=== PATIENT | female | born 1985 | race Caucasian/White ===

== ENCOUNTER 2019-10-29 19:14 | Emergency (ER) | payer OTHER, MEDICAID, SELFPAY ==
[2019-09-12 19:44] VITALS: BMI 21.8
[2019-10-29 19:15] VITALS: BP 98/75; PULSE 62; RESP 16; TEMP 36.4; O2SAT 100; BMI 22.4
--- NOTE | 2019-10-29 19:36 | EKG12_ITS ---
Test Reason : SYNCOPE Blood Pressure : / mmHG Vent. Rate : 064 BPM Atrial Rate : 064 BPM P-R Int : 134 ms QRS Dur : 094 ms QT Int : 408 ms P-R-T Axes : 021 037 025 degrees QTc Int : 420 ms Normal sinus rhythm with sinus arrhythmia RSR' or QR pattern in V1 suggests right ventricular conduction delay Borderline ECG Confirmed by ANGELA REY, AKBAR ([id number]), market editor LIZZ CUEVA ([id number]) on 10/30/2019 2:56:52 PM Referred By: EMELINA COTTRELL Confirmed By:AKBAR MILLER MD
[2019-10-29] MEDS: 0.9% Normal Saline 1,000 ML 1000 ML IV (20:10)
[2019-10-29 20:11] LABS: Absolute Lymphocyte Count 2.04 X10^3/uL (0.83-4.51); Absolute Neutrophil Count 3.3 X10^3/uL (2.0-7.7); Basophil# 0.04 X10^3/uL; Basophil% 0.7 % (0-1); Eosinophil# 0.11 X10^3/uL; Eosinophils% 1.9 % (0-5); Hematocrit 41.2 % (37-47); Hemoglobin 14.1 g/dL (12.0-15.0); Lymphocyte # 2.04 X10^3/ul (4.0); Lymphocyte % 34.5 % (19-41); Mean Corp Hgb Conc 34.2 g/dL (32-36); Mean Corpuscular Hgb 31.5 pg (27.0-32.0); Mean Corpuscular Volume 92.2 fL (81-99); Mean Platelet Vol. 11.6 fl (6.2-12.0); Monocyte# 0.39 X10^3/uL; Monocyte% 6.6 % (0-10); NRBC Flagged by Analyzer 0 % (0-5); Neutrophil # 3.31 X10^3/uL (2.7-7.7); Platelet Count 215 K/mm3 (150-450); RBC Distribution Width CV 11.9 % (11.6-14.6); RBC Distribution Width SD 40.3 fl (35.1-43.9); Red Blood Count 4.47 M/mm3 (4.2-5.4); White Blood Count 5.9 K/mm3 (4.4-11.0)
[2019-10-29 20:15] VITALS: BP 95/71; BP 97/60; BP 97/75; PULSE 55; PULSE 60; PULSE 75
[2019-10-29 20:24] LABS: Bacteria 0 SEEN /hpf (None Seen); Mucous, Urine 0 SEEN /hpf (<or=2+); Red Blood Cells-Urine 0 SEEN /hpf (0-5); White Blood Cells 0 SEEN /hpf (0-5)
[2019-10-29 20:27] LABS: Anion Gap 6 (5-15); BUN 11 mg/dL (7-18); BUN/Creat Ratio 17.7 RATIO (10-20); Calcium,Total 9.1 mg/dL (8.5-10.1); Chloride 109 mmol/L (98-107); Creatinine, Serum 0.62 mg/dL (0.55-1.02); EST Glomerular Filtration Rate 118 mL/min (>60); Est Glom Filt Rate - Afr Amer 142 mL/min (>60); Estimated Creatinine Clearance 116.13 ml/min; Glucose 83 mg/dL (74-106); Potassium 3.8 mmol/L (3.5-5.1); Sodium Level 142 mmol/L (136-145)
[2019-10-29 20:37] LABS: Color, Urine Yellow (Yellow); Glucose, Dipstick Normal (Normal); Ketone-Dipstick Negative (Negative); Leukocyte Esterase-Dipstick Negative /ul (Negative); Nitrite-Dipstick Negative (Negative); Occult Blood-Urine Negative /ul (Negative); Protein-Dipstick Negative (Negative); Specific Gravity, Urine 1.005 (1.002-1.030); Urine Bilirubin Dipstick Negative (Negative); Urine Clarity Clear (Clear); Urine Urobilinogen Normal (Normal)
[2019-10-29 20:42] LABS: Squamous Epithelial Cells - UA 0-5 SEEN /hpf (5-10)
--- NOTE | 2019-10-29 20:45 | ED.VISSUMM ---
- ER Visit Summary Date of Service: 10/29/19 Chief Complaint: [Syncope/mental status change] History of Present Illness: The patient is a 34 F [presents to the emergency department with what sounds like a syncopal episode that occurred about an hour ago. Patient was in a support group meeting sitting when she started feeling very hot and felt lightheaded and dizzy. Patient felt like she was frozen in her body and could not speak. Friends helped lay her down on the ground and after about 30 seconds she started to feel better and started to speak. She just feels tired and drained. 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 She has history of bipolar disorder, anxiety, colitis, and remote history of drug abuse. Patient is recovering and has not used in over 3 years but used to use opiates as well as cocaine and benzodiazepines as well as methamphetamines. Patient has had prior hysterectomy.] 1 of the bystanders noted that patient's pupils were different sizes and became concerned. There is no seizure-like activity noted. Physical Examination: [HEENT-PERRLA, EOMI. Cranial nerves II through XII grossly intact. TMs clear. Mucous membranes moist. No adenopathy. Cardiovascular-regular rate and rhythm without murmur or ectopy Lungs-clear to auscultation, chest wall stable without crepitus or subcu emphysema Abdomen-normoactive bowel sounds, soft, nontender, no rebound or rigidity, no peritoneal signs. Neuro bsby-ksmund-jpdg and heel newton testing within normal limits, negative Romberg, negative pronator, fundi benign Extremities-intact ?4, normal range of motion, normal pulses, atraumatic] Test Results: [EKG obtained on arrival shows sinus rhythm with a ventricular rate of 64 bpm. CBC with differential was normal. Chemistries unremarkable. Orthostatic vital signs were negative. Urinalysis was normal.] Emergency Department Course and Treatment: [She was given a liter normal same fluid bolus.] Treatment Plan: [Advised to push fluids. Patient to follow-up with her primary care physician within next 3 to 5 days.] Disposition: [Discharged home in stable condition.] Impression: [Syncope-suspect vasovagal episode] This note was generated with [employer] software. It may contain incorrect words, spelling, and punctuation that were not noted in review of the chart prior to signing ED Disposition - Plan for ED Patient: Referrals: Chely Romo, PHYSICIAN SUPPORT COORDINATOR-C [Primary Care Provider] -
--- NOTE | 2019-10-29 20:49 | ED.DEP ---
ED Disposition - Plan for ED Patient: Instructions: SYNCOPE, Vasovagal Referrals: Chely Romo, LAMBERTO-C [Primary Care Provider] - 3-5 Days
[2019-10-29 20:50] VITALS: BP 95/71; PULSE 62; RESP 12; O2SAT 98
== END 2019-10-29 21:05 | disposition home or self-care (01) ==
LOC: ED 20:01
PROVIDERS: Emergency Provider Emergency Medicine; Family Provider Nurse Practitioner; PCP Nurse Practitioner
DX: R55 Syncope and collapse (principal); R30.0 Dysuria; R35.0 Frequency of micturition; F31.9 Bipolar disorder, unspecified; F41.9 Anxiety disorder, unspecified; Z86.19 Personal history of other infectious and parasitic diseases; Z87.19 Personal history of other diseases of the digestive system; Z87.898 Personal history of other specified conditions; Z72.0 Tobacco use
CPT/HCPCS: 80048; 81001; 85025; 93005; 96360; 99285; J7030; A4216

== ENCOUNTER 2020-02-28 20:50 | Emergency (ER) | payer OTHER, MEDICAID, SELFPAY ==
[2020-02-27 16:55] VITALS: BMI 21.8
[2020-02-28 20:51] VITALS: BP 110/68; PULSE 66; RESP 16; TEMP 36.7; O2SAT 98; BMI 21.6
[2020-02-28] MEDS: 0.9% Normal Saline 1,000 ML 1000 ML IV (21:47)
[2020-02-28 21:53] LABS: Absolute Lymphocyte Count 1.97 X10^3/uL (0.83-4.51); Absolute Neutrophil Count 2.5 X10^3/uL (2.0-7.7); Basophil# 0.04 X10^3/uL; Basophil% 0.8 % (0-1); Eosinophil# 0.11 X10^3/uL; Eosinophils% 2.2 % (0-5); Hematocrit 39.8 % (37-47); Hemoglobin 13.8 g/dL (12.0-15.0); Lymphocyte # 1.97 X10^3/ul (4.0); Lymphocyte % 40.3 % (19-41); Mean Corp Hgb Conc 34.7 g/dL (32-36); Mean Corpuscular Hgb 31.7 pg (27.0-32.0); Mean Corpuscular Volume 91.3 fL (81-99); Mean Platelet Vol. 10.8 fl (6.2-12.0); Monocyte# 0.27 X10^3/uL; Monocyte% 5.5 % (0-10); NRBC Flagged by Analyzer 0 % (0-5); Neutrophil # 2.49 X10^3/uL (2.7-7.7); Platelet Count 176 K/mm3 (150-450); RBC Distribution Width CV 11.6 % (11.6-14.6); RBC Distribution Width SD 39.2 fl (35.1-43.9); Red Blood Count 4.36 M/mm3 (4.2-5.4); White Blood Count 4.9 K/mm3 (4.4-11.0)
[2020-02-28 22:09] LABS: ALB/GLOB Ratio 1.3 RATIO (0.9-2.4); AST(SGOT) 16 U/L (15-37); Alanine Aminotransfer ALT/SGPT 23 U/L (13-56); Albumin, Serum 3.9 g/dL (3.2-5.0); Alkaline Phosphatase 58 U/L (45-117); Anion Gap 5 (5-15); BUN 10 mg/dL (7-18); BUN/Creat Ratio 15.6 RATIO (10-20); Chloride 107 mmol/L (98-107); Creatinine, Serum 0.64 mg/dL (0.55-1.02); EST Glomerular Filtration Rate 113 mL/min (>60); Est Glom Filt Rate - Afr Amer 137 mL/min (>60); Glucose 83 mg/dL (74-106); Lipase 161 U/L (73-393); Potassium 3.4 mmol/L (3.5-5.1); Protein, Total 6.9 g/dL (6.4-8.2); Sodium Level 142 mmol/L (136-145)
--- NOTE | 2020-02-28 22:21 | ED.DCSUM_ITS ---
- ER Visit Summary Date of Service: 02/28/20 Chief Complaint: Abdominal pain, nausea, vomiting, and diarrhea History of Present Illness: The patient is a 34 F who presents with abdominal pain, nausea, vomiting, and diarrhea for the past week. Patient states her pain is diffuse across her abdomen. Patient states pain is aching and burning. Patient states the pain is stabbing at times. Patient states the pain is been constant. Patient admits to some nausea and vomiting. Patient denies any hematemesis or coffee-ground emesis. Patient states her primary care physician ordered her Phenergan which has been helping. Patient admits to diarrhea but denies any melena or hematochezia. Patient denies any dysuria or hematuria. Physical Examination: Vital signs are stable. Patient is afebrile. Patient is in no acute distress. Oral mucosa is pink and moist. Neck is supple. Trachea is midline. There is no JVD noted. Heart was regular rate and rhythm. Lungs are clear and equal bilaterally. Abdomen is soft. Bowel sounds are normal. There is mild diffuse tenderness. There is no rebound or guarding noted. Skin is warm dry. Cranial nerves II through XII are intact. There are no focal motor or sensory deficits noted. Extremities are intact. There is no calf tend erness or edema. Test Results: CBC, comprehensive metabolic profile, and urinalysis were obtained were all within normal limits. Serum alcohol level was normal. Urine tox scree n is pending. Emergency Department Course and Treatment: Patient was given IV fluids here. Patient started having some nausea and vomiting. Patient was given a dose of Zofran. sheep farm worker was in to talk with the patient. As she was talking to her, the patient started having increasing thoughts of suicide if she were to be discharged. Patient will be placed in a psychiatric facility. Disposition: Transfer to psychiatric facility Impression: 1. Depression with suicidal ideation 2. Abdominal pain 3. Nausea and vomiting This note was generated with [employer] dictation software. It may contain incorrect words, spelling, and punctuation that were not noted in review of the chart prior to signing ED Disposition - Plan for ED Patient: Disposition: Psychiatric Hospital or Unit Diagnosis: Depression with suicidal ideation, Abdominal pain, Nausea & vomiting Referrals: Chely Romo NP-C [Primary Care Provider] -
--- NOTE | 2020-02-28 22:35 | CM.ED ---
Social Work Consult: Mental Health Informant: Dr. Strauss Chief Complaint: Patient stating to be overwhelmed with current raising thoughts and patient struggling to manage mental health on own at this time, even with community support (counseling). Patient stating to be experiencing a lot of highs and lows. Marital/Social History: Single. Currently has a boyfriend. Living Situation: Lives with roommate. Support/Resources: Sober support group, [facility], patient follows with counseling and psychiatrist. Patient counselor is Sharon. Patient has only had one appointment with the psychiatrist at this time. Patient identifying positive support from family and friends. History: None Education/Employment History: Completed High school. Currently in [employer] for a degree in sociology. Patient denies any concerns with comprehension on a regular basis but stating that lately patient has been unable to concentrate or focus. Mental Health Treatment/History: Bi-polar, Depression, PTSD, Anxiety. Patient stating that counseling is helpful and that patient recently was started on Zoloft 5mg and had a three day manic episode and has not stopped taking Zoloft due to psychiatrist recommendation and is not taking any medication at this time. Patient stating to have a history of inpatient psychiatric placement and last placement was in 2015 in [place]. Triggers/Stressors: Patient stating that this time of year is a stressful time as there was trauma around this time of year in patient past. Patient stating to also be stressed with recent changes in life style due to stay at home orders (current COVID-19 pandemic). Coping Skills: Journaling, Meditation, Yoga, Eating right, exercise and support group. Patient stating that the coping skills are just not doing it. Abuse Issues: Patient reporting a history of trauma. Did not explore whole history at this time. Substance Abuse Hx: Patient stating to have a substance abuse history of substance of choice being Meth. Patient stating last use was 2015. Patient stating to have used other substance as well but to not currently abuse substances outside of smoking tobacco. Risk to Self/Others: Patient initially denies any suicidal thoughts. Later in conversation patient stating I might be contemplating suicide. Patient stating to be concerned that patient will use drugs again and that this would lead to patient . Patient stating I would not come back from that. Patient denies any homicidal thoughts/plans. Patient stating I want it to stop. Patient identifying raising thoughts and stating It is terrifying. Patient stating to feel patient slipping to the dark side. Patient with history of suicide attempts with last attempt in 2015. Mental Status Exam: A&Ox3 Appearance/General Behavior: Clean/appropriate. Calm. Mood/Affect: Depressed. Flat affect. Communication Pattern: Responds to questions. Thought Process: Appropriate. Denies hallucinations or delusions. General Intellectual Functioning: Average Judgement: Good. Assessment: Met with patient in room. Introduced self as well as social work program coordinator role. Patient stating to have spoken to counselor and crisis today and was recommended for patient to come to the ED for mental health evaluation and admission to inpatient psychiatric facility for stabilization. Patient stating I don't know what to do. Patient stating to have been feeling down and depressed for the past few months but that recently patient coping skills have not been working. Patient stating to feel myself disappear. Patient stating to feel as if patient is disassociating and possibly living in the past. Patient stating to not be able to concentrate or remember things. Patient stating I wish I would not wake up. Patient stating I want to live, but don't know how. Patient stating to have had a Hysterectomy in April 2019 and to have thought that it was my hormones. Identified with patient that medical changes and impact hormones and mood. Patient stating I am just not getting better. Patient stating I feel defeated. Patient stating I feel like a failure. Reminding patient of patient strength of coming into the hospital and reaching out for help. Patient stating to feel as if patient should be able to figure out things on patient own, reminded patient that using others for support is not a negative thing and does not reflect poorly on how patient is working through life. Patient over all concerned about what patient might do to stop the raising thoughts and is considering using drugs again to manage patient mental health and current emotions. Patient stating that if patient would start using drugs again that patient would most likely . Collaborating with Dr. Strauss. Recommending inpatient psychiatric placement for stabilization. PLAN: Inpatient psychiatric placement pending medical clearance. Kota REINOSO, FATOUMATA
[2020-02-28 22:43] LABS: Mucous, Urine 0 SEEN /hpf (<or=2+); Red Blood Cells-Urine 0 SEEN /hpf (0-5); White Blood Cells 0 SEEN /hpf (0-5)
[2020-02-28 22:49] LABS: Color, Urine Straw (Yellow); Glucose, Dipstick Normal (Normal); Ketone-Dipstick Negative (Negative); Leukocyte Esterase-Dipstick Negative /ul (Negative); Nitrite-Dipstick Negative (Negative); Occult Blood-Urine Negative /ul (Negative); Protein-Dipstick Negative (Negative); Urine Bilirubin Dipstick Negative (Negative); Urine Clarity Clear (Clear); Urine Urobilinogen Normal (Normal)
[2020-02-28 22:55] LABS: Bacteria RARE /hpf (None Seen); Squamous Epithelial Cells - UA 0-5 SEEN /hpf (5-10)
[2020-02-28 23:07] VITALS: BP 104/79; PULSE 60; RESP 16; TEMP 36.9; O2SAT 100
--- NOTE | 2020-02-28 23:15 | CM.ED ---
Social Work Telephone call to [place], [facility]. Clinical information faxed. Pending approval. Kota REINOSO, FATOUMATA
[2020-02-28 23:24] LABS: Alcohol, Blood (Medical)-Serum < 3.0 mg/dL
[2020-02-28] MEDS: Ondansetron 4 MG/2 ML Vial IV (23:41)
[2020-02-29 00:35] VITALS: BP 104/79; PULSE 60; RESP 16; TEMP 36.9; O2SAT 100
[2020-02-29] MEDS: Dicyclomine 10 MG Capsule 20 MG PO (00:48)
[2020-02-29] MEDS: Mag Hydrox/Al Hydrox/Simeth 30 ML UDC PO (00:48)
[2020-02-29] MEDS: proMETHazine 25 MG Tablet PO (00:59)
--- NOTE | 2020-02-29 09:18 | ED.RN ---
SEE DOWN TIME DOCUMENTATION FROM [id number]
== END 2020-02-29 01:55 ==
PROVIDERS: Emergency Provider Emergency Medicine; PCP Nurse Practitioner
DX: F32.9 Major depressive disorder, single episode, unspecified (principal); R45.851 Suicidal ideations; R10.9 Unspecified abdominal pain; R11.2 Nausea with vomiting, unspecified; R19.7 Diarrhea, unspecified; M54.2 Cervicalgia; R51 Headache; M54.9 Dorsalgia, unspecified; R50.9 Fever, unspecified; Z79.899 Other long term (current) drug therapy; F17.200 Nicotine dependence, unspecified, uncomplicated
CPT/HCPCS: 36415; 80053; 80320; 81001; 83690; 85025; 96361; 96374; 99283; J7030; A4216; G0480; J2405

== ENCOUNTER → 2020-08-21 | Outpatient (CLI) | payer OTHER, MEDICAID, SELFPAY ==
[2020-08-21 17:55] VITALS: BMI 23.3
[2020-08-21 21:20] LABS: Absolute Lymphocyte Count 2.25 X10^3/uL (0.83-4.51); Absolute Neutrophil Count 2.7 X10^3/uL (2.0-7.7); Basophil# 0.05 X10^3/uL; Basophil% 0.9 % (0-1); Eosinophil# 0.16 X10^3/uL; Eosinophils% 2.9 % (0-5); Hematocrit 38.7 % (37-47); Hemoglobin 13.4 g/dL (12.0-15.0); Lymphocyte # 2.25 X10^3/ul (4.0); Lymphocyte % 41.1 % (19-41); Mean Corp Hgb Conc 34.6 g/dL (32-36); Mean Corpuscular Hgb 31.7 pg (27.0-32.0); Mean Corpuscular Volume 91.5 fL (81-99); Mean Platelet Vol. 12.2 fl (6.2-12.0); Monocyte# 0.34 X10^3/uL; Monocyte% 6.2 % (0-10); NRBC Flagged by Analyzer 0 % (0-5); Neutrophil # 2.66 X10^3/uL (2.7-7.7); Neutrophil % 48.7 % (47-70); Platelet Count 205 K/mm3 (150-450); RBC Distribution Width CV 11.8 % (11.6-14.6); RBC Distribution Width SD 39.5 fl (35.1-43.9); Red Blood Count 4.23 M/mm3 (4.2-5.4); White Blood Count 5.5 K/mm3 (4.4-11.0)
[2020-08-21 21:45] LABS: ALB/GLOB Ratio 1.2 RATIO (0.9-2.4); AST(SGOT) 16 U/L (15-37); Alanine Aminotransfer ALT/SGPT 34 U/L (13-56); Albumin, Serum 3.9 g/dL (3.2-5.0); Alkaline Phosphatase 69 U/L (45-117); Anion Gap 4 (5-15); BUN 13 mg/dL (7-18); BUN/Creat Ratio 18.6 RATIO (10-20); Calcium,Total 9.6 mg/dL (8.5-10.1); Chloride 108 mmol/L (98-107); EST Glomerular Filtration Rate 102 mL/min (>60); Est Glom Filt Rate - Afr Amer 123 mL/min (>60); Globulin 3.2 g/dL (2.2-4.2); Glucose 101 mg/dL (74-106); Potassium 3.4 mmol/L (3.5-5.1); Protein, Total 7.1 g/dL (6.4-8.2); Sodium Level 140 mmol/L (136-145); Thyroid Stim Hormone (TSH) 0.99 uIU/mL (0.358-3.74)
[2020-08-23 05:07] LABS: Immunoglobulin G 823 mg/dL (586-1602)
[2020-08-23 09:47] LABS: Immunoglobulin A 169 mg/dL (87-352)
[2020-08-23 12:34] LABS: ANTINUCLEAR ANTIBODIES DIRECT Negative (Negative)
[2020-08-23 16:08] LABS: Endomysial Antibody IgA Negative (Negative)
[2020-08-23 17:13] LABS: Deamidated Gliadin IgA 3 units (0-19); Deamidated Gliadin IgG 2 units (0-19); Immunoglobulin A 168 mg/dL (87-352); t-Transglutaminase IgA <2 U/mL (0-3)
== END | disposition home or self-care (01) ==
PROVIDERS: Visit Provider Nurse Practitioner
DX: M25.50 Pain in unspecified joint (principal); K52.9 Noninfective gastroenteritis and colitis, unspecified; D69.6 Thrombocytopenia, unspecified; R53.83 Other fatigue; D64.9 Anemia, unspecified; M25.40 Effusion, unspecified joint
CPT/HCPCS: 80053; 82784; 83516; 84443; 85025; 86038; 86225; 86235; 86255; 86431

== ENCOUNTER → 2020-11-07 | Outpatient (CLI) | payer OTHER, MEDICAID, SELFPAY | END | disposition home or self-care (01) | LOC: LABSPEC 15:15 | PROVIDERS: PCP Nurse Practitioner; Visit Provider Otolaryngology | DX: J02.9 Acute pharyngitis, unspecified (principal) | CPT/HCPCS: 87070 ==

== ENCOUNTER 2020-12-26 11:23 | Emergency (ER) | payer MEDICAID, SELFPAY ==
[2020-12-26 11:25] VITALS: BP 138/76; PULSE 98; RESP 18; TEMP 36.5; O2SAT 100; BMI 22.4
--- NOTE | 2020-12-26 11:45 | EKG12_ITS ---
Test Reason : Blood Pressure : / mmHG Vent. Rate : 073 BPM Atrial Rate : 073 BPM P-R Int : 136 ms QRS Dur : 094 ms QT Int : 394 ms P-R-T Axes : 024 054 031 degrees QTc Int : 434 ms Normal sinus rhythm with sinus arrhythmia Normal ECG Confirmed by ROMI REY, RIVERA ([id number]), art editor CANDELARIA SUMMERS ([id number]) on 12/30/2020 10:45:05 AM Referred By: FATEMEH Confirmed By:ZOHAIB LLANOS MD
--- NOTE | 2020-12-26 11:45 | ED.VIS.GEN ---
History of Present Illness Chief Complaint: Palpitations Informant: Patient Narrative: 35-year-old female presenting with palpitations and lightheadedness which started after she had a meeting today. Patient states that she had a little bit of chest pressure. She states that she has had bouts of low blood sugar and thought maybe it was this what drinking something did not change anything. Patient also states that she has gotten lightheaded from standing up before and it does not feel the same. She also cannot describe her dizziness as vertiginous in nature. No history of vertigo. Patient has no cardiac history or medical problems that she knows of. No history of DVT/PE. Patient does states that she had Covid?19 when February and recovered slowly. She states she is modified her lifestyle and eats healthy now. Past Medical History - Allergies and Home Meds Allergies/Adverse Reactions: Allergies aspirin Allergy (Severe, Verified 12/26/20 11:24) anaphylaxis Penicillins Allergy (Severe, Verified 12/26/20 11:24) anaphylactic vancomycin Allergy (Severe, Verified 12/26/20 11:24) Anaphylaxis lurasidone [From Latuda] Adverse Reaction (Severe, Verified 12/26/20 11:24) made her feel funny Primary Care Physician: Chely Romo [facility], [facility] [Nurse Practitioner] - Prior records reviewed: Yes Past Medical History: - - Patient reports no significant medical history. Surgical History: noncontributory Lives: Alone Smoking Status: Current every day smoker Alcohol: None Drugs: None Review of Systems General: Denies: Chills, Fever, Malaise Eyes: Denies: Visual changes - bilaterally, Diplopia ENT: Denies: Rhinorrhea, Sore throat Cardiovascular: Reports: Chest pain, Palpitations, Heart racing Respiratory: Denies: Dyspnea, Cough, Dyspnea on exertion Gastrointestinal: Denies: Abdominal pain, Nausea, Vomiting, Diarrhea, Melena, Hematochezia Genitourinary: Denies: Dysuria, Hematuria Musculoskeletal: Denies: Myalgias, Arthralgias Skin: Denies: Rash, Abscess Neurological: Denies: Headache, Weakness, Parasthesia, Numbness Psych: Reports: Anxiety. Denies: Suicidal thoughts, Suicidal ideations Physical Exam Vital Signs/Narrative: Vital Signs Temp Pulse Resp BP Pulse Ox 12/26/20 11:25 97.7 F L 98 18 138/76 H 100 Inital Vital Signs reviewed: Yes General: Well nourished, Well developed, No Acute Distress Head: Normocephalic, Atraumatic Eyes: Perrl, EOMI ENT: Moist mucous membranes, No rhinorrhea Cardiovascular: Regular rate, Regular rhythm Respiratory: No distress, CTA bilaterally Extremities: Nontender, No edema Skin: Normal color, No rash. Negative for: Cyanosis, Diaphoresis Neurological: Alert, Oriented x3, Cranial nerves II-XII grossly intact Psychological: Normal affect, Normal Mood Diagnostic/Tx/Re-eval Clinical Impression(s) from Imaging Studies Chest X-Ray 12/26/20 12:23 IMPRESSION: Normal x-ray examination of the chest. Electronically Signed: Quinton Blanco MD at 12:47 EST , Service support , Laboratory Data 12/26/20 12/26/20 12/26/20 12:06 12:06 12:06 WBC 3.5 L RBC 4.59 Hgb 14.5 Hct 41.9 MCV 91.3 MCH 31.6 MCHC 34.6 RDW Std Deviation 38.7 RDW Coeff of Ivon 11.6 Plt Count 179 MPV 11.9 Immature Gran % (Auto) 0.300 Neut % (Auto) 55.7 Lymph % (Auto) 33.3 Weston % (Auto) 7.3 Eos % (Auto) 2.3 Baso % (Auto) 1.1 H Absolute Neuts (auto) 2.0 Absolute Lymphs (auto) 1.18 Nucleated RBC % 0 D-Dimer Quant (PE/DVT) 0.30 Sodium 140 Potassium 3.6 Chloride 107 Carbon Dioxide 28.0 Anion Gap 5 BUN 9 Creatinine 0.76 Estim Creat Clear Calc 93.85 Est GFR (MDRD) Af Amer 113 Est GFR (MDRD) Non-Af 93 BUN/Creatinine Ratio 11.9 Glucose 89 Calcium 8.6 Troponin I < 0.015 - Rhythm Strip Rhythm Strip: Sinus Rhythm Rate: 73 - EKG Initial EKG Interpretation: Sinus Rhythm, No Acute Injury Pattern, Sinus Arrythmia - Medical Decision Making 35-year-old female presenting with dizziness. She states that suddenly onset today. On exam I am not able able to reproduce this dizziness. She cannot determine if it is vertiginous or lightheadedness. I did attempt to give her medications to see if it would help with her dizziness however she declined she was given IV fluids. Her lab work including CBC, BMP, troponin, D-dimer are all normal. Chest x-ray as interpreted by myself is negative for acute cardiopulmonary process and radiology does agree. EKG ischemic change as interpreted by myself. I believe the patient is stable to be discharged home at this time. She is given return precautions. Impression: 1. Dizziness 2. Palpitations ED Disposition - Plan for ED Patient: Disposition: Home or Assisted Living Diagnosis: Dizziness Referrals: Chely Romo NP, [facility] [Nurse Practitioner] -
[2020-12-26 12:09] VITALS: O2SAT 98
[2020-12-26] MEDS: 0.9% Normal Saline 1,000 ML 999 ML IV (12:11)
[2020-12-26 12:18] LABS: Absolute Lymphocyte Count 1.18 X10^3/uL (0.83-4.51); Basophil# 0.04 X10^3/uL; Basophil% 1.1 % (0-1); Eosinophil# 0.08 X10^3/uL; Eosinophils% 2.3 % (0-5); Hematocrit 41.9 % (37-47); Hemoglobin 14.5 g/dL (12.0-15.0); Lymphocyte # 1.18 X10^3/ul (4.0); Lymphocyte % 33.3 % (19-41); Mean Corp Hgb Conc 34.6 g/dL (32-36); Mean Corpuscular Hgb 31.6 pg (27.0-32.0); Mean Corpuscular Volume 91.3 fL (81-99); Mean Platelet Vol. 11.9 fl (6.2-12.0); Monocyte# 0.26 X10^3/uL; Monocyte% 7.3 % (0-10); NRBC Flagged by Analyzer 0 % (0-5); Neutrophil # 1.97 X10^3/uL (2.7-7.7); Neutrophil % 55.7 % (47-70); Platelet Count 179 K/mm3 (150-450); RBC Distribution Width CV 11.6 % (11.6-14.6); RBC Distribution Width SD 38.7 fl (35.1-43.9); Red Blood Count 4.59 M/mm3 (4.2-5.4); White Blood Count 3.5 K/mm3 (4.4-11.0)
--- NOTE | 2020-12-26 12:23 | RAD_ITS ---
STUDY: X-RAY CHEST REASON FOR EXAM: Female, 35 years old. Heart palpitations., lightheaded TECHNIQUE: Single AP portable view of the chest. COMPARISON: Comparison is made with prior study 07/13/2011. FINDINGS: EKG electrodes are seen. The lungs are clear and expanded. There is no demonstrated pleural abnormality. Normal size heart. Normal mediastinum and fletcher. Normal visualized pulmonary arteries. Normal visualized aortic arch and descending thoracic aorta. Normal visualized thoracic spine. Normal visualized ribs, clavicles, and shoulders. There is no demonstrated abnormality of the visualized soft tissue structures of the upper abdomen. RAD/Chest 1 View (Portable) IMPRESSION: Normal x-ray examination of the chest. Electronically Signed: Quinton Blanco MD at 12:47 EST , Service support ,
[2020-12-26 12:31] LABS: Anion Gap 5 (5-15); BUN 9 mg/dL (7-18); BUN/Creat Ratio 11.9 RATIO (10-20); Calcium,Total 8.6 mg/dL (8.5-10.1); Chloride 107 mmol/L (98-107); Creatinine, Serum 0.76 mg/dL (0.55-1.02); EST Glomerular Filtration Rate 93 mL/min (>60); Est Glom Filt Rate - Afr Amer 113 mL/min (>60); Estimated Creatinine Clearance 93.85 ml/min; Glucose 89 mg/dL (74-106); Potassium 3.6 mmol/L (3.5-5.1); Sodium Level 140 mmol/L (136-145)
[2020-12-26 13:36] VITALS: BP 101/62; PULSE 74; RESP 16; O2SAT 99
== END 2020-12-26 13:41 | disposition home or self-care (01) ==
PROVIDERS: Emergency Provider Student in an Organized Health Care Education/Training Program
DX: R42 Dizziness and giddiness (principal); R00.2 Palpitations; R07.89 Other chest pain; F17.200 Nicotine dependence, unspecified, uncomplicated
CPT/HCPCS: 71045; 80048; 84484; 85025; 85379; 93005; 96360; 99284; J7030; A4216

== ENCOUNTER → 2021-02-19 14:00 | Outpatient (CLI) | payer MEDICAID, SELFPAY ==
[2021-02-18 17:27] VITALS: BMI 22.6
== END ==
PROVIDERS: PCP Nurse Practitioner; Referring Provider Nurse Practitioner; Visit Provider Nurse Practitioner
DX: R53.83 Other fatigue (principal); I95.9 Hypotension, unspecified
CPT/HCPCS: 87635; C9803; U0002

== ENCOUNTER → 2021-03-21 11:04 | Outpatient (CLI) | payer MEDICAID, SELFPAY ==
[2021-03-18 11:44] VITALS: BMI 22.8
[2021-03-27 04:07] LABS: Banana 0.29 kU/L (Class 0/I); Carrot <0.10 kU/L (Class 0); Chicken <0.10 kU/L (Class 0); Crab <0.10 kU/L (Class 0); Egg, Yolk <0.10 kU/L (Class 0); Garlic 0.14 kU/L (Class 0/I); Oat 0.22 kU/L (Class 0/I); Onion 0.25 kU/L (Class 0/I); Pea <0.10 kU/L (Class 0); Pecan <0.10 kU/L (Class 0); Rice 0.14 kU/L (Class 0/I); Salmon <0.10 kU/L (Class 0); Shrimp <0.10 kU/L (Class 0); Strawberry 0.12 kU/L (Class 0/I); Tomato 0.31 kU/L (Class 0/I); Tuna <0.10 kU/L (Class 0); Walnut, (Food) 0.17 kU/L (Class 0/I); Yeast <0.10 kU/L (Class 0)
[2021-03-27 07:49] LABS: Cashew <0.10 kU/L (Class 0); Turkey <0.10 kU/L (Class 0)
== END ==
PROVIDERS: PCP Nurse Practitioner; Visit Provider Otolaryngology
DX: T78.40XA Allergy, unspecified, initial encounter (principal)
CPT/HCPCS: 36415; 86003

== ENCOUNTER → 2021-04-16 | Outpatient (CLI) | payer MEDICAID, SELFPAY ==
[2021-04-16 16:33] VITALS: BMI 22.8
[2021-04-16 22:08] LABS: Absolute Lymphocyte Count 2.17 X10^3/uL (0.83-4.51); Absolute Neutrophil Count 3.6 X10^3/uL (2.0-7.7); Basophil# 0.04 X10^3/uL; Basophil% 0.6 % (0-1); Eosinophil# 0.03 X10^3/uL; Eosinophils% 0.5 % (0-5); Hematocrit 37.6 % (37-47); Hemoglobin 12.7 g/dL (12.0-15.0); Lymphocyte # 2.17 X10^3/ul (0.83-4.51); Lymphocyte % 34.7 % (19-41); Mean Corp Hgb Conc 33.8 g/dL (32-36); Mean Corpuscular Hgb 31.4 pg (27.0-32.0); Mean Corpuscular Volume 92.8 fL (81-99); Monocyte# 0.43 X10^3/uL; Monocyte% 6.9 % (0-10); NRBC Flagged by Analyzer 0 % (0-5); Neutrophil # 3.57 X10^3/uL (2.7-7.7); Neutrophil % 57.1 % (47-70); Platelet Count 238 K/mm3 (150-450); RBC Distribution Width CV 11.8 % (11.6-14.6); RBC Distribution Width SD 40.1 fl (35.1-43.9); Red Blood Count 4.05 M/mm3 (4.2-5.4); White Blood Count 6.3 K/mm3 (4.4-11.0)
[2021-04-16 22:24] LABS: ALB/GLOB Ratio 1.3 RATIO (0.9-2.4); AST(SGOT) 14 U/L (15-37); Alanine Aminotransfer ALT/SGPT 29 U/L (13-56); Albumin, Serum 3.8 g/dL (3.2-5.0); Alkaline Phosphatase 49 U/L (45-117); Anion Gap 5 (5-15); BUN 11 mg/dL (7-18); BUN/Creat Ratio 15.3 RATIO (10-20); Calcium,Total 9.4 mg/dL (8.5-10.1); Chloride 106 mmol/L (98-107); Creatinine, Serum 0.72 mg/dL (0.55-1.02); EST Glomerular Filtration Rate 99 mL/min (>60); Est Glom Filt Rate - Afr Amer 119 mL/min (>60); Globulin 2.9 g/dL (2.2-4.2); Glucose 97 mg/dL (74-106); Potassium 4.1 mmol/L (3.5-5.1); Protein, Total 6.7 g/dL (6.4-8.2); Sodium Level 140 mmol/L (136-145)
== END | disposition home or self-care (01) ==
PROVIDERS: Visit Provider Nurse Practitioner
DX: R10.13 Epigastric pain (principal); R11.14 Bilious vomiting; K90.0 Celiac disease
CPT/HCPCS: 80053; 85025

== ENCOUNTER → 2021-04-29 07:54 | Outpatient (CLI) | payer MEDICAID, SELFPAY ==
[2021-04-23 09:55] VITALS: BMI 22.6
--- NOTE | 2021-04-29 07:56 | US_ITS ---
STUDY: ABDOMINAL ULTRASOUND - RIGHT UPPER QUADRANT REASON FOR VISIT: Female, 35 years old RUQ abdominal pain TECHNIQUE: Ultrasound evaluation of the right upper quadrant was performed with real-time and static concepcion-scale imaging. TECHNICAL QUALITY: Adequate. COMPARISON: None. FINDINGS: Liver: The liver measures 12.9 cm. There is mild increased echogenicity consistent with a mild degree of fatty infiltration. The bile ducts are within normal limits. There is hepatic color flow. The direction of portal flow is hepatopetal. There is no demonstrated mass lesion. Gallbladder: Normal distended gallbladder. The gallbladder wall measures 1.3 mm. There is a negative sonographic Berumen''s sign. There is no pericholecystic fluid. There are no gallstones. Common Bile Duct (C.B.D.): The common bile duct measures 1.5 mm. Pancreas: Normal size of the head, body and tail of the pancreas. There is normal echogenicity of the pancreas. There is no demonstrated pancreatic mass or cyst. Right Kidney: Normal size of the right kidney. The right kidney measures 12.8 cm x 5 cm x 3.8 cm. Normal renal cortex. The right cortex measures 1.3 cm. There is no demonstrated renal mass or cyst. There is no right hydronephrosis. US/Gallbladder IMPRESSION: Mild degree of fatty infiltration of the liver. Electronically Signed: Quinton Blanco MD at 14:17 EDT , Service support ,
== END ==
PROVIDERS: PCP Nurse Practitioner; Referring Provider Surgery; Visit Provider Surgery
DX: R10.11 Right upper quadrant pain (principal)
CPT/HCPCS: 76705

== ENCOUNTER → 2021-09-12 | Outpatient (CLI) | payer MEDICAID, SELFPAY | END | disposition home or self-care (01) | LOC: LABSPEC 14:56 | PROVIDERS: PCP Nurse Practitioner; Referring Provider Physician Assistant Surgical; Visit Provider Physician Assistant Surgical | DX: Z11.52 Encounter for screening for COVID-19 (principal) | CPT/HCPCS: 87635; U0005; U0003 ==

== ENCOUNTER → 2022-06-04 | Outpatient (CLI) | payer MEDICAID, SELFPAY ==
--- NOTE | 2022-06-04 08:06 | NM_ITS ---
EXAM: NM GASTRIC EMPTYING SCAN CLINICAL INDICATION: CELIAC COMPRESSION SYNDROME TECHNIQUE: Patient was fed oatmeal containing 1 mCi Tc99m sulfur colloid. Images of the abdomen were obtained over a period of one hour. Half time of gastric emptying and percent retention of radionuclide activity were calculated. This report was created using [employer] report generation technology. COMPARISON: None. FINDINGS: STOMACH: Gastric emptying at 60 minutes calculated to be 50%. NM/Gastric Emptying Study IMPRESSION: Normal gastric emptying time with solids. Electronically Signed: Sandip Saenz MD at 15:00 EDT ,
== END | disposition home or self-care (01) ==
PROVIDERS: PCP Nurse Practitioner; Referring Provider Surgery Vascular Surgery; Visit Provider Surgery Vascular Surgery
DX: I77.4 Celiac artery compression syndrome (principal); I87.1 Compression of vein; G43.909 Migraine, unspecified, not intractable, without status migrainosus; F43.10 Post-traumatic stress disorder, unspecified; F17.200 Nicotine dependence, unspecified, uncomplicated; E78.00 Pure hypercholesterolemia, unspecified; K52.9 Noninfective gastroenteritis and colitis, unspecified; I70.8 Atherosclerosis of other arteries
CPT/HCPCS: 78264; A9541

== ENCOUNTER → 2022-06-09 | Outpatient (CLI) | payer MEDICAID, SELFPAY ==
--- NOTE | 2022-06-09 07:54 | RAD_ITS ---
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 FLUOROSCOPY TIME (if supplied): (1:00) minutes/seconds. 30 images were obtained. TECHNIQUE: Radiographic and fluoroscopic images of the distal esophagus, stomach, and proximal small intestine were obtained following the oral ingestion of barium. COMPARISON: None. FINDINGS: There is no evidence for organomegaly, abnormal calcifications, or abnormal bowel gas pattern. The psoas margins and flank stripes are normal. The visualized osseous structures are normal. The mucosa of the esophagus, stomach and duodenum is normal in appearance without evidence for stricture, ulceration, mass or diverticulum. There is no evidence for hiatal hernia or gastroesophageal reflux. RAD/Upper GI Dual Contrast IMPRESSION: 1. Normal upper gastrointestinal study. Electronically Signed: Quinton Blanco MD at 8:50 EDT ,
== END | disposition home or self-care (01) ==
LOC: RAD 07:52
PROVIDERS: PCP Nurse Practitioner; Referring Provider Surgery Vascular Surgery; Visit Provider Surgery Vascular Surgery
DX: K52.9 Noninfective gastroenteritis and colitis, unspecified (principal); I77.4 Celiac artery compression syndrome; I87.1 Compression of vein; G43.909 Migraine, unspecified, not intractable, without status migrainosus; F43.10 Post-traumatic stress disorder, unspecified; F17.200 Nicotine dependence, unspecified, uncomplicated; E78.00 Pure hypercholesterolemia, unspecified; I70.8 Atherosclerosis of other arteries
CPT/HCPCS: 74246

== ENCOUNTER 2023-02-01 16:19 | Emergency (ER) | payer MEDICAID, SELFPAY ==
[2023-02-01 16:20] VITALS: BP 107/78; PULSE 69; RESP 16; TEMP 36.6; O2SAT 99; BMI 23.6
--- NOTE | 2023-02-01 16:37 | EKG12_ITS ---
Test Reason : HIGH HR Blood Pressure : / mmHG Vent. Rate : 059 BPM Atrial Rate : 059 BPM P-R Int : 146 ms QRS Dur : 092 ms QT Int : 416 ms P-R-T Axes : 023 044 035 degrees QTc Int : 411 ms Sinus bradycardia Otherwise normal ECG Confirmed by FAYE REY, KARINE ([id number]), electronic news gathering editor CANDELARIA SUMMERS ([id number]) on 02/03/2023 10:23:52 AM Referred By: AIDA Confirmed By:KARINE MCKINNEY MD
--- NOTE | 2023-02-01 16:40 | EX.ED.DYSGE1 ---
HPI History of Present Illness Chief Complaint: Palpitations Informant: patient Onset/Context/Timing Onset: Today Narrative Narrative: Patient presents via EMS after an episode of palpitations. She states he was at work today when she felt her heart was racing and skipping beats, she became short of breath and weak. She thought maybe was related to anxiety. She took a half of her 0.5 mg Ativan tab but did not really note any significant improvement in her symptoms. She states that she has some heart issues since she had COVID in 2019. She has worn a Holter monitor which showed episodes of bradycardia and tachycardia. She was seen by cardiology recently and given propranolol to take. She takes this sporadically as she does tend to have a low blood pressure at baseline. She states she does feel improved currently. [facility] Medical History Anxiety Chronic Tom Narayan virus (EBV) infection Colitis Depression Drug addiction in remission Endometriosis H/O ETOH abuse IBS (irritable bowel syndrome) Normal colonoscopy Psychosomatic seizure PTSD (post-traumatic stress disorder) RUQ discomfort Home Medications vitamin Bcomplex no.10-folic acid ER 400 mcg tablet,extended release tablet PO 02/18/21 [History Last Taken Unknown] ashwagandha root extract 300 mg capsule mg PO 07/21/21 [History Last Taken Unknown] cholecalciferol (vitamin D3) 25 mcg (1,000 unit) capsule 3,000 unit PO DAILY 07/21/21 [History Last Taken Unknown] hydroxyzine pamoate 25 mg capsule (Vistaril) 25 mg PO QHS 04/07/22 [History Last Taken Unknown] lorazepam 0.5 mg tablet (Ativan) 0.5 mg PO DAILY PRN 04/07/22 [History Last Taken Unknown] Allergy/AdvReac Type Severity Reaction Status Date / Time aspirin Allergy Severe anaphylaxis Verified 02/01/23 16:23 Penicillins Allergy Severe anaphylacti Verified 02/01/23 16:23 c vancomycin Allergy Severe Anaphylaxis Verified 02/01/23 16:23 ciprofloxacin [From Cipro HC] AdvReac Severe Diarrhea Verified 02/01/23 16:23 hydrocortisone AdvReac Severe Diarrhea Verified 02/01/23 16:23 [From Cipro HC] lurasidone [From Latuda] AdvReac Severe made her Verified 03/06/23 16:23 feel funny Family History Mother Asthma CHF (congestive heart failure) Other Basal cell adenoma CAD (coronary artery disease) COPD (chronic obstructive pulmonary disease) CVA (cerebral vascular accident) Diabetes Endometriosis Heart disease Hypertension Myocardial infarction Seizures Thyroid disorder Surgical History H/O hysterectomy with unilateral oophorectomy H/O laparoscopy History of myringotomy Hx of tonsillectomy Social History Smoking Status: Current every day smoker tobacco type: cigarettes alcohol intake: never substance use type: former substance user caffeine: Yes what type of physical activity do you participate in: yoga frequency: 1-2 times per week ROS ROS ED Constitutional Constitutional ED: Denies chills or fever(s) Eyes Eyes: Denies change in vision or discharge from eye(s) ENT ENT ED: Denies discharge from eye(s), rhinorrhea or sore throat Cardiovascular Cardiovascular: Reports palpitations and racing heartbeat Respiratory/Chest Respiratory/Chest: Reports dyspnea; Denies cough Gastrointestinal Gastrointestinal: Denies abdominal pain, diarrhea, nausea or vomiting Genitourinary Genitourinary ED: Denies dysuria Musculoskeletal Musculoskeletal: Denies back pain or extremity pain Integumentary Denies Abrasions or rash Neurologic Neurologic: Denies headache(s) or weakness Psychiatric Psychiatric: Denies anxiety or depression Endocrine Endocrinology: Denies polydipsia or polyuria Allergic/Immunologic Allergic/Immunologic ED: Denies lip swelling or urticaria EXAM Physical Exam Const Vital Signs: 02/01/23 16:20 02/01/23 16:35 Temperature 97.9 F Temperature Source Temporal Pulse Rate 69 Respiratory Rate 16 Respiratory Effort Normal Non-Labored Blood Pressure 107/78 Blood Pressure Mean 87 Pulse Ox 99 Oxygen Delivery Method Room Air Positive well nourished and well developed General Appearance ED: well developed HEENT Reports normocephalic and head/scalp atraumatic Eyes PERRL and EOMs intact bilaterally Neck supple Chest Wall inspection of chest normal and palpation of chest normal Resp normal respiratory effort and clear to auscultation bilaterally Cardio regular rate and regular rhythm GI normal to inspection, nondistended, normoactive bowel sounds Palpation: soft Extremity normal to inspection Neuro oriented x3 and no sensory deficits noted Sensorium / Orientation: alert Motor Exam: strength 5/5 throughout Psych mental status grossly normal Skin no rashes or lesions noted MDM MDM MDM Narrative Medical decision making narrative: Lab work-upPatient does have a watch which will take EKG readings. She hit the button when she started having palpitations. EKG reads possible A-fib due to irregular heart rate. When I zoom in and look at the tracings it appears that she is in sinus rhythm with a rate of 83. There is a lot of baseline artifact and I believe this is why it was reading irregular heart rate with possible A-fib. Patient is placed on ekg monitor. EKG obtained to evaluate for arrhythmia/ischemia. To evaluate for leukocytosis, anemia, electrolyte derangement. D-dimer obtained to evaluate for possibility of blood clot. Troponin obtained to evaluate for ischemia and TSH obtained. Portable chest x-ray ordered to evaluate cardiac silhouette and lung pathology. Lab Data Attestation: I reviewed the patient's lab results. Labs: Laboratory Results - last 24 hr 02/01/23 02/01/23 02/01/23 16:35 16:35 16:35 WBC 4.7 RBC 4.42 Hgb 13.7 Hct 40.4 MCV 91.4 MCH 31.0 MCHC 33.9 RDW Std Deviation 40.0 RDW Coeff of Ivon 11.9 Plt Count 215 MPV 11.4 Immature Gran % (Auto) 0.400 Neut % (Auto) 54.8 Lymph % (Auto) 35.3 [place] % (Auto) 7.3 Eos % (Auto) 1.3 Baso % (Auto) 0.9 Absolute Neuts (auto) 2.6 Absolute Lymphs (auto) 1.65 Nucleated RBC % 0 D-Dimer Quant (PE/DVT) < 0.27 L Sodium 139 Potassium 3.4 L Chloride 106 Carbon Dioxide 27.0 Anion Gap 6 BUN 16 Creatinine 0.72 Estim Creat Clear Calc 97.20 Est GFR (MDRD) Af Amer 117 Est GFR (MDRD) Non-Af 97 BUN/Creatinine Ratio 22.1 H Glucose 96 Calcium 9.1 Troponin I High Sens < 3 L TSH 1.35 Radiography Chest X-Ray - ED: 1 View, Read by ED Physician, Normal, Heart, Lungs and Mediastinum Diagnostic Testing: Clinical Impression(s) from Imaging Studies Chest X-Ray 02/01/23 16:57 IMPRESSION: No radiographic evidence of acute cardiopulmonary disease. Electronically Signed: Alicia Bain MD at 17:29 EST Reading Location ID and State: [id number] / Tel , Service support , EKG Initial EKG: Interpretation: Sinus Bradycardia (Sinus bradycardia 59 bpm. No acute ischemia.) Additional Tests and Interventions Diagnositc testing considered but not performed: CTA chest considered given tachycardia and shortness of breath, however D-dimer negative and vital signs normal at this time. Treatment and Re-Evaluation :: Repeat evaluation patient resting comfortably. She had no further episodes of palpitations while here. CBC and chemistry studies are unremarkable other than potassium minimally low at 3.4. TSH, D-dimer, troponin all normal. EKG is sinus bradycardia with no ischemia. Normal intervals. Portable chest x-ray per my interpretation feels no acute abnormalities. Radiology interpretation is reviewed. Patient will follow-up with her assistant professor of biochemistry as an outpatient. She will continue her current medication regimen. Discharge Plan Triage Chief Complaint: Palpitations ED Provider: Liana Lion Dx/Rx/DC Orders Clinical Impression: Palpitations Instructions: ED Palpitations Prescriptions: No Action vitamin Bcomplex no.10-folic acid ER 400 mcg tablet,extended release 400 mcg tablet extended release PO cholecalciferol (vitamin D3) 25 mcg (1,000 unit) capsule 3,000 unit PO DAILY ashwagandha root extract 300 mg capsule PO Label Comments: for the chronic fatigue lorazepam [Ativan] 0.5 mg tablet 0.5 mg PO DAILY PRN hydroxyzine pamoate [Vistaril] 25 mg capsule 25 mg PO QHS Primary Care Provider: [facility]N [place] Referrals: Chely Romo NP, [employer] FACULTY ASSISTANT-C [Med Staff - Adv Practice Prof] - Activity Restrictions/Additional Instructions: Follow-up with your assistant professor of biochemistry in the next 2 to 4 weeks. Disposition Disposition: Home, Self Care
[2023-02-01] MEDS: 0.9% Normal Saline 1,000 ML 150 ML IV (16:46)
[2023-02-01 16:56] LABS: Absolute Lymphocyte Count 1.65 X10^3/uL (0.83-4.51); Absolute Neutrophil Count 2.6 X10^3/uL (2.0-7.7); Basophil# 0.04 X10^3/uL; Basophil% 0.9 % (0-1); Eosinophil# 0.06 X10^3/uL; Eosinophils% 1.3 % (0-5); Hematocrit 40.4 % (37-47); Hemoglobin 13.7 g/dL (12.0-15.0); Lymphocyte # 1.65 X10^3/ul (0.83-4.51); Lymphocyte % 35.3 % (19-41); Mean Corp Hgb Conc 33.9 g/dL (32-36); Mean Corpuscular Volume 91.4 fL (81-99); Mean Platelet Vol. 11.4 fl (6.2-12.0); Monocyte# 0.34 X10^3/uL; Monocyte% 7.3 % (0-10); NRBC Flagged by Analyzer 0 % (0-5); Neutrophil # 2.57 X10^3/uL (2.7-7.7); Neutrophil % 54.8 % (47-70); Platelet Count 215 K/mm3 (150-450); RBC Distribution Width CV 11.9 % (11.6-14.6); Red Blood Count 4.42 M/mm3 (4.2-5.4); White Blood Count 4.7 K/mm3 (4.4-11.0)
--- NOTE | 2023-02-01 16:57 | RAD_ITS ---
INDICATION: palpitations EXAMINATION/TECHNIQUE: X-RAY - XR Chest 1 View COMPARISON: 12/26/2020 FINDINGS: LINES/DEVICES: None. LUNGS: No consolidation, edema or effusion. No pneumothorax. MEDIASTINUM AND CARDIOVASCULAR STRUCTURES: Cardiac silhouette not enlarged. Central airways and mediastinal contour are unremarkable. BONES AND SOFT TISSUES: Unremarkable. RAD/Chest 1 View (Portable) IMPRESSION: No radiographic evidence of acute cardiopulmonary disease. Electronically Signed: Alicia Bain MD at 17:29 EST Reading Location ID and State: [id number] / Tel , Service support ,
[2023-02-01 17:27] LABS: Anion Gap 6 (5-15); BUN 16 mg/dL (7-18); BUN/Creat Ratio 22.1 RATIO (10-20); Calcium,Total 9.1 mg/dL (8.5-10.1); Chloride 106 mmol/L (98-107); Creatinine, Serum 0.72 mg/dL (0.55-1.02); EST Glomerular Filtration Rate 97 mL/min (>60); Est Glom Filt Rate - Afr Amer 117 mL/min (>60); Glucose 96 mg/dL (74-106); Potassium 3.4 mmol/L (3.5-5.1); Sodium Level 139 mmol/L (136-145); Thyroid Stim Hormone (TSH) 1.35 uIU/mL (0.358-3.74); Troponin-I HS < 3 pg/mL (3.0-54.0)
[2023-02-01 17:28] LABS: D-Dimer Quantitative (DVT/PE) < 0.27 FEU/ug/m (0.27-0.49)
[2023-02-01 18:03] VITALS: BP 101/72; PULSE 59; RESP 17
== END 2023-02-01 18:08 | disposition home or self-care (01) ==
PROVIDERS: Emergency Provider Emergency Medicine; Visit Provider Emergency Medicine
DX: R00.2 Palpitations (principal); F41.9 Anxiety disorder, unspecified; Z79.899 Other long term (current) drug therapy; F17.210 Nicotine dependence, cigarettes, uncomplicated
CPT/HCPCS: 71045; 80048; 84443; 84484; 85025; 85379; 93005; 99285; J7030; A4216

== ENCOUNTER → 2023-03-25 | Outpatient (CLI) | payer MEDICAID, SELFPAY ==
[2023-03-25 11:32] LABS: Erythrocyte Sedimentation Rate < 1 mm/hr (0-30)
[2023-03-25 11:34] LABS: Absolute Lymphocyte Count 1.26 X10^3/uL (0.83-4.51); Absolute Neutrophil Count 1.9 X10^3/uL (2.0-7.7); Basophil# 0.03 X10^3/uL; Basophil% 0.9 % (0-1); Eosinophil# 0.05 X10^3/uL; Eosinophils% 1.5 % (0-5); Hematocrit 39.1 % (37-47); Lymphocyte # 1.26 X10^3/ul (0.83-4.51); Mean Corp Hgb Conc 33.2 g/dL (32-36); Mean Corpuscular Hgb 30.5 pg (27.0-32.0); Mean Corpuscular Volume 91.8 fL (81-99); Mean Platelet Vol. 11.2 fl (6.2-12.0); Monocyte# 0.21 X10^3/uL; Monocyte% 6.2 % (0-10); NRBC Flagged by Analyzer 0 % (0-5); Neutrophil # 1.85 X10^3/uL (2.7-7.7); Neutrophil % 54.1 % (47-70); Platelet Count 212 K/mm3 (150-450); RBC Distribution Width SD 40.4 fl (35.1-43.9); Red Blood Count 4.26 M/mm3 (4.2-5.4); White Blood Count 3.4 K/mm3 (4.4-11.0)
[2023-03-25 11:37] LABS: Prothrombin Time (Protime)PT. 12.9 SECONDS (11.7-14.9)
[2023-03-25 11:40] LABS: Ammonia < 10.0 umol/L (11-32)
[2023-03-25 11:59] LABS: ALB/GLOB Ratio 1.2 RATIO (0.9-2.4); AST(SGOT) 13 U/L (15-37); Alanine Aminotransfer ALT/SGPT 20 U/L (13-56); Albumin, Serum 3.4 g/dL (3.2-5.0); Alkaline Phosphatase 51 U/L (45-117); Anion Gap 2 (5-15); BUN 13 mg/dL (7-18); BUN/Creat Ratio 18.4 RATIO (10-20); Calcium,Total 8.6 mg/dL (8.5-10.1); Chloride 108 mmol/L (98-107); Creatinine, Serum 0.71 mg/dL (0.55-1.02); EST Glomerular Filtration Rate 99 mL/min (>60); Est Glom Filt Rate - Afr Amer 120 mL/min (>60); Ferritin 32 ng/mL (8-252); Globulin 2.9 g/dL (2.2-4.2); Glucose 84 mg/dL (74-106); LDH 124 U/L (84-246); Potassium 3.3 mmol/L (3.5-5.1); Protein, Total 6.3 g/dL (6.4-8.2); Sodium Level 138 mmol/L (136-145)
[2023-03-25 12:00] LABS: CRP < 2.90 mg/L (0.0-3.0)
[2023-03-25 12:20] LABS: HIV - WCH Non-Reactive (Nonreactive)
[2023-03-26 14:10] LABS: Anti-Centromere B Ab <0.2 AI (0.0-0.9); Anti-Chromatin <0.2 AI (0.0-0.9); Anti-Jo <0.2 AI (0.0-0.9); Anti-Mitochondrial AB <20.0 Units (0.0-20.0); Anti-Scleroderma-70 AB <0.2 AI (0.0-0.9); Anti-dsDNA Ab 2 IU/mL (0-9); RNP Ab <0.2 AI (0.0-0.9); SJOGREN'S Anti-SS-A test < 0.2 AI (0.0-0.9); SJOGREN'S Anti-SS-B test < 0.2 AI (0.0-0.9); Smith Ab <0.2 AI (0.0-0.9)
[2023-03-26 16:09] LABS: Endomysial Antibody IgA Negative (Negative); Immunoglobulin A 177 mg/dL (87-352); t-Transglutaminase IgA <2 U/mL (0-3)
[2023-03-31 12:08] LABS: Albumin 4.2 g/dL (2.9-4.4); Alpha-1-Globulins 0.2 g/dL (0.0-0.4); Alpha-2-Globulins 0.5 g/dL (0.4-1.0); Angiotensin Convert Enzyme 67 U/L (14-82); Anti-Smooth Muscle ABS 6 Units (0-19); HEPATITIS B SURFACE AG Negative (Negative); Haptoglobin 19 mg/dL (33-278); Hep C Antibodies Non Reactive (Non Reactive); Hepatitis A IgM Antibody Negative (Negative); Hepatitis B Core AB IgM Negative (Negative); Immunoglobulin A 175 mg/dL (87-352); Immunoglobulin G 951 mg/dL (586-1602); Immunoglobulin M 199 mg/dL (26-217); PROEL- TOTAL PROTEIN 6.7 g/dL (6.0-8.5)
[2023-03-31 12:09] LABS: AFP, Tumor Marker 6.5 ng/mL (0.0-6.4); Ceruloplasmin 20.3 mg/dL (19.0-39.0); Copper, Serum or Plasma 84 ug/dL (80-158); Cytoplasmic Ab (C-ANCA) <1:20 titer (Neg:<1:20); Dopamine, Pl <30 pg/mL (0-48); Epinephrine, Pl <15 pg/mL (0-62); Immunoglobulin E 43 IU/mL (6-495); Norepinephrine, Pl 327 pg/mL (0-874); Perinuclear Ab (P-ANCA) <1:20 titer (Neg:<1:20)
== END | disposition home or self-care (01) ==
PROVIDERS: Referring Provider Internal Medicine Gastroenterology; Visit Provider Internal Medicine Gastroenterology
DX: K76.0 Fatty (change of) liver, not elsewhere classified (principal); K62.5 Hemorrhage of anus and rectum; K59.00 Constipation, unspecified
CPT/HCPCS: 36415; 80053; 80074; 82105; 82140; 82164; 82384; 82390; 82525; 82728; 82784; 82785; 83010; 83036; 83516; 83615; 84165; 85025; 85610; 85652; 86140; 86225; 86235; 86255; 86256; 86334; 86703

== ENCOUNTER → 2023-03-29 | Outpatient (CLI) | payer BC, MEDICAID, SELFPAY ==
[2023-04-01 06:09] LABS: Beef <0.10 kU/L (Class 0); Chocolate <0.10 kU/L (Class 0); Corn 0.39 kU/L (Class I); Egg, Whole <0.10 kU/L (Class 0); Milk (Cow) <0.10 kU/L (Class 0); Peanut 0.43 kU/L (Class I); Pork <0.10 kU/L (Class 0); Soybean 0.35 kU/L (Class I); Wheat 0.41 kU/L (Class I)
[2023-04-02 05:07] LABS: Dopamine, 24Ur 179 ug/24 hr (0-510); Dopamine, UR 119 ug/L (Undefined); Epinephrine, 24Ur 5 ug/24 hr (0-20); Epinephrine, Ur 3 ug/L (Undefined); Norepinephrine, 24Ur 29 ug/24 hr (0-135); Norepinephrine, Ur 19 ug/L (Undefined)
[2023-04-02 22:06] LABS: Calprotectin, Stool 22 ug/g (0-120)
== END | disposition home or self-care (01) ==
PROVIDERS: Referring Provider Internal Medicine Gastroenterology; Visit Provider Internal Medicine Gastroenterology
DX: R10.30 Lower abdominal pain, unspecified (principal); K76.0 Fatty (change of) liver, not elsewhere classified; K62.5 Hemorrhage of anus and rectum; K59.00 Constipation, unspecified
CPT/HCPCS: 36415; 81050; 82384; 83630; 83993; 86003; 86005

== ENCOUNTER → 2023-04-09 | Outpatient (CLI) | payer BC, MEDICAID, SELFPAY ==
--- NOTE | 2023-04-09 07:32 | US_ITS ---
STUDY: ABDOMINAL ULTRASOUND - RIGHT UPPER QUADRANT; ELASTOGRAPHY REASON FOR VISIT: Female, 37 years old. Fatty infiltration of the liver. TECHNIQUE: Ultrasound evaluation of the right upper quadrant was performed with real-time and static concepcion-scale imaging. Point quantification shear wave elastography was performed ([employer]). TECHNICAL QUALITY: Adequate. COMPARISON: Comparison is made with prior study dated April 29, 2021. FINDINGS: Liver: The liver measures 15.5 cm. There is a mild degree of increased echogenicity consistent with mild fatty infiltration. The bile ducts are within normal limits. There is hepatic color flow. The direction of portal flow is hepatopetal. There is no demonstrated mass lesion. Median liver stiffness measured 5.6 kPa. Gallbladder: Normal distended gallbladder. The gallbladder wall measures 2 mm. There is a negative sonographic Berumen''s sign. There is no pericholecystic fluid. There are no gallstones. Common Bile Duct (C.B.D.): The common bile duct measures 3.7 mm. Pancreas: There is normal echogenicity of the visualized pancreas. There is no demonstrated pancreatic mass or cyst. Right Kidney: Normal size of the right kidney. The right kidney measures 11.9 cm x 6 cm x 3.5 cm. Normal renal cortex. The right cortex measures 1.5 cm. There is no demonstrated renal mass or cyst. There is no right hydronephrosis. US/Abdomen Limited IMPRESSION: 1. Liver stiffness measures 5.6 kPa compatible with F0-F1 (Normal to mild liver fibrosis) Metavir score. Electronically Signed: Quinton Blanco MD at 10:57 EDT ,
== END | disposition home or self-care (01) ==
LOC: US 07:32
PROVIDERS: Referring Provider Internal Medicine Gastroenterology; Visit Provider Internal Medicine Gastroenterology
DX: K76.0 Fatty (change of) liver, not elsewhere classified (principal); K62.5 Hemorrhage of anus and rectum
CPT/HCPCS: 91200; 76705; 76981

== ENCOUNTER → 2023-07-22 | Outpatient (CLI) | payer BC, MEDICAID, SELFPAY ==
[2023-07-22 14:37] LABS: Absolute Lymphocyte Count 1.85 X10^3/uL (0.83-4.51); Absolute Neutrophil Count 3.1 X10^3/uL (2.0-7.7); Basophil# 0.05 X10^3/uL; Basophil% 0.9 % (0-1); Eosinophil# 0.07 X10^3/uL; Eosinophils% 1.3 % (0-5); Hematocrit 41.8 % (37-47); Hemoglobin 13.8 g/dL (12.0-15.0); Lymphocyte # 1.85 X10^3/ul (0.83-4.51); Lymphocyte % 34.3 % (19-41); Mean Corpuscular Hgb 31.2 pg (27.0-32.0); Mean Corpuscular Volume 94.6 fL (81-99); Mean Platelet Vol. 10.9 fl (6.2-12.0); Monocyte# 0.34 X10^3/uL; Monocyte% 6.3 % (0-10); NRBC Flagged by Analyzer 0 % (0-5); Neutrophil # 3.07 X10^3/uL (2.7-7.7); Platelet Count 215 K/mm3 (150-450); RBC Distribution Width CV 11.9 % (11.6-14.6); Red Blood Count 4.42 M/mm3 (4.2-5.4); White Blood Count 5.4 K/mm3 (4.4-11.0)
[2023-07-22 14:40] LABS: Erythrocyte Sedimentation Rate < 1 mm/hr (0-30)
[2023-07-22 15:03] LABS: CRP < 2.90 mg/L (0.0-3.0)
[2023-07-24 06:09] LABS: Haptoglobin 23 mg/dL (33-278)
== END | disposition home or self-care (01) ==
LOC: LAB 14:05
PROVIDERS: Referring Provider Internal Medicine Gastroenterology; Visit Provider Internal Medicine Gastroenterology
DX: K76.0 Fatty (change of) liver, not elsewhere classified (principal)
CPT/HCPCS: 36415; 83010; 85025; 85652; 86140

== ENCOUNTER → 2023-08-10 | Outpatient (CLI) | payer MEDICAID, SELFPAY ==
[2023-08-11 04:07] LABS: AFP, Tumor Marker 6.3 ng/mL (0.0-6.4)
== END | disposition home or self-care (01) ==
PROVIDERS: PCP Nurse Practitioner Family; Referring Provider Internal Medicine Gastroenterology; Visit Provider Internal Medicine Gastroenterology
DX: K76.0 Fatty (change of) liver, not elsewhere classified (principal); K62.5 Hemorrhage of anus and rectum
CPT/HCPCS: 36415; 82105

== ENCOUNTER 2023-08-14 10:20 | Emergency (ER) | payer MEDICAID, SELFPAY ==
[2023-08-14 10:21] VITALS: BP 92/71; PULSE 76; RESP 18; TEMP 35.8; O2SAT 100; BMI 22.1
--- NOTE | 2023-08-14 10:38 | CT_ITS ---
STUDY: CT ABDOMEN AND PELVIS WITH CONTRAST REASON FOR EXAM: Female, 37 years old. LLQ pain RADIATION DOSAGE (If Supplied By Facility): CTDIvol = ( 16.84 ) mGy, DLP = ( 346.71 ) mGycm TECHNIQUE: Transaxial images were obtained from the dome of the diaphragm to the symphysis pubis without oral contrast. IV 100mL Isovue-370 was administered. Sagittal and coronal images were reconstructed. Individualized dose optimization techniques were used for this CT. COMPARISON: None. FINDINGS: The visualized lung bases are unremarkable. The visualized portions of the heart are within normal limits. Normal liver. Normal gallbladder and extrahepatic biliary system. Normal spleen. Normal pancreas. Normal bilateral adrenal glands. Normal right kidney. Normal left kidney. Normal visualized stomach. Normal small intestine. Normal colon. The appendix is visualized and appears normal. Normal abdominal aorta. Normal inferior vena cava. Normal retroperitoneum. Normal urinary bladder. There is absence of the uterus consistent with a prior hysterectomy. There is no free fluid in the abdomen or pelvis. Normal abdominal wall. Normal osseous structures. CT/Abdomen/Pelvis W IV Cont ONLY IMPRESSION: No obstruction. No stones or hydronephrosis. Hepatomegaly. Electronically Signed: Yogi Gongora MD at 11:51 EDT ,
[2023-08-14] MEDS: Morphine 4 MG/ML Syringe IV (10:51)
[2023-08-14] MEDS: 0.9% Normal Saline (1000mL) 1,000 ML 1000 ML IV (10:51)
[2023-08-14] MEDS: Ondansetron 4 MG/2 ML Vial IV (10:51)
[2023-08-14 10:52] LABS: Bacteria 0 SEEN /hpf (None Seen); Mucous, Urine 0 SEEN /hpf (<or=2+); Red Blood Cells-Urine 0 SEEN /hpf (0-5); White Blood Cells 0 SEEN /hpf (0-5)
[2023-08-14 10:54] LABS: Absolute Lymphocyte Count 1.45 X10^3/uL (0.83-4.51); Absolute Neutrophil Count 2.2 X10^3/uL (2.0-7.7); Basophil# 0.05 X10^3/uL; Basophil% 1.2 % (0-1); Color, Urine Yellow (Yellow); Eosinophils% 2.4 % (0-5); Glucose, Dipstick Normal (Normal); Hematocrit 44.1 % (37-47); Hemoglobin 15.2 g/dL (12.0-15.0); Ketone-Dipstick Negative (Negative); Leukocyte Esterase-Dipstick Negative /ul (Negative); Lymphocyte # 1.45 X10^3/ul (0.83-4.51); Lymphocyte % 35.4 % (19-41); Mean Corp Hgb Conc 34.5 g/dL (32-36); Mean Corpuscular Hgb 32.1 pg (27.0-32.0); Mean Platelet Vol. 11.3 fl (6.2-12.0); Monocyte# 0.33 X10^3/uL; NRBC Flagged by Analyzer 0 % (0-5); Neutrophil # 2.17 X10^3/uL (2.7-7.7); Nitrite-Dipstick Negative (Negative); Occult Blood-Urine Negative /ul (Negative); Platelet Count 210 K/mm3 (150-450); Protein-Dipstick Negative (Negative); RBC Distribution Width CV 11.9 % (11.6-14.6); RBC Distribution Width SD 40.8 fl (35.1-43.9); Red Blood Count 4.74 M/mm3 (4.2-5.4); Urine Bilirubin Dipstick Negative (Negative); Urine Clarity Clear (Clear); Urine Urobilinogen Normal (Normal); White Blood Count 4.1 K/mm3 (4.4-11.0)
--- NOTE | 2023-08-14 10:58 | EX.ED.DYSGE1 ---
HPI History of Present Illness Chief Complaint: Abd Pain Informant: patient Onset/Context/Timing Onset: Yesterday Context: Gradual Onset Location: LLQ Maximum Severity: Severe Narrative Narrative: Patient presents with what she describes as a bowel flare. She follows with Dr. Giles and is being evaluated for colitis, UC, Crohn's disease. Symptoms started last night. She reported severe pain and diarrhea. No bleeding. No vomiting. She does have chills but no fevers. Last CAT scan was in March and showed colitis, according the patient. She is scheduled for colonoscopy. She is not currently on steroids or antibiotics. Remote history of partial hysterectomy and laparoscopic surgery. Takes vitamins and Ativan for PTSD. Prior similar symptoms: Yes PFSH PFSH Medical History Anxiety Chronic Tom Narayan virus (EBV) infection Colitis Depression Diarrhea Drug addiction in remission Endometriosis H/O ETOH abuse IBS (irritable bowel syndrome) Normal colonoscopy Psychosomatic seizure PTSD (post-traumatic stress disorder) Raynauds disease RUQ discomfort Home Medications vitamin Bcomplex no.10-folic acid ER 400 mcg tablet,extended release tablet PO 02/18/21 [History Last Taken Unknown] ashwagandha root extract 300 mg capsule mg PO 07/21/21 [History Last Taken Unknown] cholecalciferol (vitamin D3) 25 mcg (1,000 unit) capsule 3,000 unit PO DAILY 07/21/21 [History Last Taken Unknown] hydroxyzine pamoate 25 mg capsule (Vistaril) 25 mg PO QHS 04/07/22 [History Last Taken Unknown] lorazepam 0.5 mg tablet (Ativan) 0.5 mg PO DAILY PRN 04/07/22 [History Last Taken Unknown] Golytely 236 gram-22.74 gram-6.74 gram-5.86 gram oral solution (peg 3350-electrolytes) 240 ml PO Q10M #4,000 mL 08/10/23 [Rx Last Taken Unknown] Allergy/AdvReac Type Severity Reaction Status Date / Time aspirin Allergy Severe anaphylaxis Verified 02/01/23 16:23 Penicillins Allergy Severe anaphylacti Verified 02/01/23 16:23 c vancomycin Allergy Severe Anaphylaxis Verified 02/01/23 16:23 latex Allergy Severe Anaphylaxis Uncoded 08/10/23 10:15 KETORLAC Allergy Intermediate SWELLING Uncoded 08/14/23 10:24 Family History Mother Asthma CHF (congestive heart failure) Other Basal cell adenoma CAD (coronary artery disease) COPD (chronic obstructive pulmonary disease) CVA (cerebral vascular accident) Diabetes Endometriosis Heart disease Hypertension Myocardial infarction Seizures Thyroid disorder Surgical History H/O hysterectomy with unilateral oophorectomy H/O laparoscopy History of myringotomy Hx of tonsillectomy Social History Smoking Status: Current every day smoker tobacco type: cigarettes alcohol intake: never substance use type: former substance user caffeine: Yes what type of physical activity do you participate in: yoga frequency: 1-2 times per week ROS ROS ED Constitutional Constitutional ED: Reports chills; Denies fever(s) Cardiovascular Cardiovascular: Denies chest pain Respiratory/Chest Respiratory/Chest: Denies cough Gastrointestinal Gastrointestinal: Reports abdominal pain and diarrhea; Denies constipation Musculoskeletal Musculoskeletal: Denies arthralgias Integumentary Denies abscess Psychiatric Psychiatric: Reports anxiety Endocrine Endocrinology: Denies cold intolerance EXAM Physical Exam Const Vital Signs: 08/14/23 10:21 Temperature 96.5 F L Temperature Source Temporal Pulse Rate 76 Respiratory Rate 18 Blood Pressure 92/71 Blood Pressure Mean 78 Pulse Ox 100 Oxygen Delivery Method Room Air Positive well nourished and well developed General Appearance ED: well developed HEENT Reports moist mucous membranes Eyes EOMs intact bilaterally Resp normal respiratory effort Cardio regular rate GI normal to inspection, nondistended, normoactive bowel sounds, non-distended and no masses; Negative for non-tender or hepatosplenomegaly Inspection: Negative for abdominal distention Extremity normal to inspection Neuro oriented x3 and CN's II-XII intact bilaterally Sensorium / Orientation: alert Psych Mood & Affect: tearful Skin no rashes or lesions noted MDM MDM Lab Data Attestation: I reviewed the patient's lab results. Labs: Laboratory Results - last 24 hr 08/14/23 08/14/23 10:15 10:51 WBC 4.1 L RBC 4.74 Hgb 15.2 H Hct 44.1 MCV 93.0 MCH 32.1 H MCHC 34.5 RDW Std Deviation 40.8 RDW Coeff of Ivon 11.9 Plt Count 210 MPV 11.3 Immature Gran % (Auto) 0.000 Neut % (Auto) 53.0 Lymph % (Auto) 35.4 [place] % (Auto) 8.0 Eos % (Auto) 2.4 Baso % (Auto) 1.2 H Absolute Neuts (auto) 2.2 Absolute Lymphs (auto) 1.45 Nucleated RBC % 0 Sodium 141 Potassium 4.1 Chloride 111 H Carbon Dioxide 27.0 Anion Gap 3 L BUN 13 Creatinine 0.85 Estim Creat Clear Calc 82.33 Est GFR (MDRD) Af Amer 97 Est GFR (MDRD) Non-Af 80 BUN/Creatinine Ratio 15.3 Glucose 62 L Lactic Acid 1.2 Calcium 8.8 Total Bilirubin 0.80 AST 24 ALT 30 Alkaline Phosphatase 53 Total Protein 6.9 Albumin 3.7 Globulin 3.2 Albumin/Globulin Ratio 1.2 Urine Color Yellow Urine Clarity Clear Urine pH 7.0 Ur Specific [place] 1.010 Urine Protein Negative Urine Glucose (UA) Normal Urine Ketones Negative Urine Occult Blood Negative Urine Nitrite Negative Urine Bilirubin Negative Urine Urobilinogen Normal Ur Leukocyte Esterase Negative Urine RBC 0 SEEN Urine WBC 0 SEEN Ur Squamous Epith Cells 0-5 SEEN Urine Bacteria 0 SEEN Urine Mucus 0 SEEN Urine Test Negative Radiography Diagnostic Testing: Clinical Impression(s) from Imaging Studies Abdomen/Pelvis CT 08/14/23 10:38 IMPRESSION: No obstruction. No stones or hydronephrosis. Hepatomegaly. Electronically Signed: Yogi Gongora MD at 11:51 EDT , I reviewed the CT results above Differential Diagnosis Why less likely: I considered GI causes like colitis or inflammatory bowel disease and others. I considered and SIGN LANGUAGE INSTRUCTOR causes as well. and SIGN LANGUAGE INSTRUCTOR causes were thought to be less likely based on the lack of symptoms or pertinent exam findings. Treatment and Re-Evaluation :: Patient was treated with IV fluids, pain medicine, nausea medicine. Improved on reevaluation. Labs, urine, and CT did not reveal a source of her pain and symptoms. I do believe she will benefit from further outpatient follow-up with GI, and this is scheduled. Return for any new or worsening issues. There is no sign of complication at this time which will require hospitalization. Stay hydrated. Will prescribe Bentyl. Return for new or worsening issues. Disposition is discharged home Impression #1 abdominal pain Discharge Plan Triage Chief Complaint: Abd Pain Other Complaint: Diarrhea ED Provider: Meet Aguilar Dx/Rx/DC Orders Instructions: ED Abdominal Pain Unkn Cause Fem Prescriptions: No Action peg 3350-electrolytes [Golytely] 236-22.74-6.74 -5.86 gram recon soln 240 ml PO Q10M Qty: 4000 0RF Rx Instructions: until fecal effluent is clear vitamin Bcomplex no.10-folic acid ER 400 mcg tablet,extended release 400 mcg tablet extended release PO cholecalciferol (vitamin D3) 25 mcg (1,000 unit) capsule 3,000 unit PO DAILY ashwagandha root extract 300 mg capsule PO Patient Comments: for the chronic fatigue lorazepam [Ativan] 0.5 mg tablet 0.5 mg PO DAILY PRN hydroxyzine pamoate [Vistaril] 25 mg capsule 25 mg PO QHS Primary Care Provider: Marylou Arauz Referrals: Marylou Arauz, RISK MODELER-C [Primary Care Provider] - Disposition Disposition: Home, Self Care
[2023-08-14 11:01] LABS: Squamous Epithelial Cells - UA 0-5 SEEN /hpf (5-10)
[2023-08-14 11:02] LABS: Internal QC Validated? YES +Cl - CLEAR BKGD; Pregnancy, Urine Negative Negative
[2023-08-14 11:17] LABS: ALB/GLOB Ratio 1.2 RATIO (0.9-2.4); AST(SGOT) 24 U/L (15-37); Alanine Aminotransfer ALT/SGPT 30 U/L (13-56); Albumin, Serum 3.7 g/dL (3.2-5.0); Alkaline Phosphatase 53 U/L (45-117); Anion Gap 3 (5-15); BUN 13 mg/dL (7-18); BUN/Creat Ratio 15.3 RATIO (10-20); Calcium,Total 8.8 mg/dL (8.5-10.1); Chloride 111 mmol/L (98-107); Creatinine, Serum 0.85 mg/dL (0.55-1.02); EST Glomerular Filtration Rate 80 mL/min (>60); Est Glom Filt Rate - Afr Amer 97 mL/min (>60); Estimated Creatinine Clearance 82.33 ml/min; Globulin 3.2 g/dL (2.2-4.2); Glucose 62 mg/dL (74-106); Potassium 4.1 mmol/L (3.5-5.1); Protein, Total 6.9 g/dL (6.4-8.2); Sodium Level 141 mmol/L (136-145)
[2023-08-14 11:28] LABS: Lactic Acid 1.2 mmol/L (0.4-1.9)
== END 2023-08-14 12:15 | disposition home or self-care (01) ==
PROVIDERS: Emergency Medicine; Emergency Provider Emergency Medicine; PCP Nurse Practitioner Family; Visit Provider Emergency Medicine
DX: R10.9 Unspecified abdominal pain (principal); Z90.710 Acquired absence of both cervix and uterus; F41.9 Anxiety disorder, unspecified; Z90.721 Acquired absence of ovaries, unilateral; F17.210 Nicotine dependence, cigarettes, uncomplicated; R19.7 Diarrhea, unspecified
CPT/HCPCS: 74177; 80053; 81001; 81025; 83605; 85025; 96361; 96374; 96375; 99282; J7030; Q9967; A4216; J2405

== ENCOUNTER 2023-09-03 10:51 | Day surgery (SDC) | payer MEDICAID, SELFPAY ==
[2023-09-03] VITALS (9 sets, daily range): BP systolic 81–96; BP diastolic 45–61; PULSE 45–81; RESP 16; TEMP 36.2–36.9; O2SAT 100; BMI 21.6
--- NOTE | 2023-09-03 | COLBX_PTH ---
PATIENT: JOSE THOMAS LOC: EN U#:[id number] AGE/SX: 37/F ROOM: RE09/03/[address]: Dr. Donnie Giles DO : 1985 BED: DIS: 09/03/2023 SPEC #: [id number] RECD: 09/03/23 14:35 STATUS: ERIC REVidya #: [id number] IQRA: 09/03/23 00:[address]: Donnie Giles DEPT: SURGICAL PATHOLOGY RECD BY: Louie Posada ENTERED: 09/06/23 09:33 SP TYPE: COLON BX OT DR: Marylou Arauz, SUPER[employer]-C Tissues: A - Ileum, NOS B - COLON BIOPSY Procedures: Surgery Specimen Level IV HEADER OPERATION: Colonoscopy PRE-OP DIAGNOSIS: Fatty liver, constipation, abdominal pain TISSUE SUBMITTED: A - Ileocecal valve biopsy, B - Random colon biopsy MICROSCOPIC DIAGNOSIS A. Ileocecal valve, biopsy: No pathologic change. B. Colon, random biopsy: Mild melanosis coli. AM:derek 09/07/2023 MICROSCOPIC DESCRIPTION Slides are reviewed. GROSS DESCRIPTION A - Received in fixative is one container labeled with the patient's name and designated ileocecal valve biopsy. The specimen consists of two irregular fragments of light velasquez soft tissue that in aggregate measure 0.7 x 0.5 x 0.1 cm. The specimen is totally submitted in one cassette. B - Received in fixative is one container labeled with the patient's name and designated random colon biopsy. The specimen consists of multiple irregular fragments of light velasquez soft tissue that in aggregate measure 2.5 x 1.0 x 0.1 cm. The specimen is totally submitted in one cassette. / AM:derek 09/06/2023 TC:5 [facility]: [id number] x2
[2023-09-03] MEDS: Lactated Ringers 1,000 ML 15 ML IV (11:15)
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
--- NOTE | 2023-09-03 12:52 | OP.CCLET_ITS ---
09/03/2023 Marylin Resendiz Re : Colonoscopy procedure for Kim Chaves Dear [place] This procedure was performed on Sunday, September 03, 2023. My impressions and recommendations are as follows: Impressions : - Decreased sphincter tone found on digital rectal exam. - Congested mucosa in the recto-sigmoid colon, in the sigmoid colon, at the splenic flexure, at the hepatic flexure, in the ascending colon and in the cecum. Biopsied. - The examined portion of the ileum was normal. Recommendations : - Discharge patient to home. - Resume previous diet. - Continue present medications. - Await pathology results. - Repeat colonoscopy for surveillance based on pathology results. My findings are described in the full procedure note, which is enclosed. If I can be of further assistance, please feel free to contact me at . Sincerely, Donnie Giles, 09/03/2023 12:52:17 PM This report has been signed electronically.
--- NOTE | 2023-09-03 12:52 | OP.COLON_ITS ---
Patient Name: Kim Chaves Procedure Date: 09/03/2023 11:43 AM Date of : 1985 Age: 37 Procedure: Colonoscopy Indications: Abdominal pain in the left lower quadrant, Clinically significant diarrhea of unexplained origin Providers: Donnie Giles DO Medicines: Monitored Anesthesia Care Patient Profile: This is a 37 year old female. Refer to note in patient chart for documentation of history and physical. Last Colonoscopy: date unknown. Unable to locate last colonoscopy report. Complications: No immediate complications. Procedure: Pre-Anesthesia Assessment: - Prior to the procedure, a History and Physical was performed, and patient medications and allergies were reviewed. The risks and benefits of the procedure and the sedation options and risks were discussed with the patient. All questions were answered and informed consent was obtained. Patient identification and proposed procedure were verified by the physician. Mental Status Examination: normal. Prophylactic Antibiotics: The patient does not require prophylactic antibiotics. Prior Anticoagulants: The patient has taken no anticoagulant or antiplatelet agents. ASA Grade Assessment: II - A patient with mild systemic disease. After reviewing the risks and benefits, the patient was deemed in satisfactory condition to undergo the procedure. The anesthesia plan was to use monitored anesthesia care (MAC). Immediately prior to administration of medications, the patient was re-assessed for adequacy to receive sedatives. The heart rate, respiratory rate, oxygen saturations, blood pressure, adequacy of pulmonary ventilation, and response to care were monitored throughout the procedure. The physical status of the patient was re-assessed after the procedure. After I obtained informed consent, the scope was passed under direct vision. Throughout the procedure, the patient's blood pressure, pulse, and oxygen saturations were monitored continuously. The pediatric colonoscope was introduced through the anus and advanced to the terminal ileum. The colonoscopy was technically difficult and complex due to a redundant colon. The patient tolerated the procedure well. The quality of the bowel preparation was adequate. The terminal ileum, ileocecal valve, appendiceal orifice, and rectum were photographed. Scope In: 12:14:35 PM Scope Withdrawal Time 0 hours 11 minutes 30 seconds Scope Out: 12:42:32 PM Total Procedure Duration Time 0 hours 27 minutes 57 seconds Findings: The digital rectal exam findings include decreased sphincter tone. An area of moderately congested mucosa was found in the recto-sigmoid colon, in the sigmoid colon, at the splenic flexure, at the hepatic flexure, in the ascending colon and in the cecum. Biopsies for histology were taken with a cold forceps from the ascending colon, right colon, left colon, transverse colon, right transverse colon, left transverse colon, descending colon, sigmoid colon, rectum and rectosigmoid colon for evaluation of microscopic colitis. The terminal ileum appeared normal. Impression: - Decreased sphincter tone found on digital rectal exam. - Congested mucosa in the recto-sigmoid colon, in the sigmoid colon, at the splenic flexure, at the hepatic flexure, in the ascending colon and in the cecum. Biopsied. - The examined portion of the ileum was normal. Recommendation: - Discharge patient to home. - Resume previous diet. - Continue present medications. - Await pathology results. - Repeat colonoscopy for surveillance based on pathology results. Procedure Code(s): --- Professional --- 47216, Colonoscopy, flexible; with biopsy, single or multiple CPT copyright 2021 [employer]. All rights reserved. The codes documented in this report are preliminary and upon physician coder review may be revised to meet current compliance requirements. Donnie Giles DO 09/03/2023 12:52:17 PM This report has been signed electronically. Number of Addenda: 0 Note Initiated On: 09/03/2023 11:43 AM
== END 2023-09-03 13:44 | disposition home or self-care (01) ==
LOC: EN 10:51 → AC 10:54
PROVIDERS: PCP Nurse Practitioner Family; Referring Provider Nurse Practitioner Family; Visit Provider Internal Medicine Gastroenterology
PROC: 0DJD8ZZ Inspection of Lower Intestinal Tract, Via Natural or Artificial Opening Endoscopic (ICD-10-PCS; CPT 45378; principal; 2023-09-03 11:55)
DX: R10.32 Left lower quadrant pain (principal); F17.200 Nicotine dependence, unspecified, uncomplicated; K59.00 Constipation, unspecified; N80.9 Endometriosis, unspecified; K76.0 Fatty (change of) liver, not elsewhere classified; K62.5 Hemorrhage of anus and rectum; K63.89 Other specified diseases of intestine
CPT/HCPCS: 45380; 88305; J7120; J2405

== ENCOUNTER 2023-09-05 16:26 | Emergency (ER) | payer MEDICAID, SELFPAY ==
[2023-09-05 16:27] VITALS: BP 102/79; PULSE 89; RESP 18; TEMP 36; O2SAT 100; BMI 22.1
--- NOTE | 2023-09-05 16:37 | CT_ITS ---
STUDY: CT ABDOMEN AND PELVIS WITH CONTRAST REASON FOR EXAM: Female, 37 years old. post op pain from colonoscopy 2 days ago RADIATION DOSAGE (If Supplied By Facility): CTDIvol = ( 13.24 ) mGy, DLP = ( 461.93 ) mGycm TECHNIQUE: Transaxial images were obtained from the dome of the diaphragm to the symphysis pubis without oral contrast. IV 75mL Isovue-370 was administered. Sagittal and coronal images were reconstructed. Individualized dose optimization techniques were used for this CT. COMPARISON: 08/14/2023 FINDINGS: The visualized lung bases are unremarkable. The visualized portions of the heart are within normal limits. Normal liver. Normal gallbladder and extrahepatic biliary system. Normal spleen. Normal pancreas. Normal bilateral adrenal glands. Normal right kidney. Normal left kidney. Normal visualized stomach. Normal small intestine. Normal colon. The appendix is visualized and appears normal. Normal abdominal aorta. Normal inferior vena cava. Normal retroperitoneum. Normal urinary bladder. Normal abdominal wall. Normal osseous structures. CT/Abdomen/Pelvis W IV Cont ONLY IMPRESSION: Normal enhanced CT of the abdomen and pelvis. Electronically Signed: Claudio Bishop MD at 17:55 EDT ,
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
[2023-09-05] MEDS: Morphine 4 MG/ML Syringe IV (16:49)
[2023-09-05] MEDS: Ondansetron 4 MG/2 ML Vial IV (16:49)
[2023-09-05] MEDS: 0.9% Normal Saline (1000mL) 1,000 ML 1000 ML IV (16:49)
[2023-09-05 16:53] LABS: Absolute Lymphocyte Count 1.49 X10^3/uL (0.83-4.51); Absolute Neutrophil Count 3.4 X10^3/uL (2.0-7.7); Basophil# 0.04 X10^3/uL; Basophil% 0.7 % (0-1); Eosinophil# 0.12 X10^3/uL; Eosinophils% 2.2 % (0-5); Hematocrit 41.1 % (37-47); Hemoglobin 14.1 g/dL (12.0-15.0); Lymphocyte # 1.49 X10^3/ul (0.83-4.51); Lymphocyte % 27.9 % (19-41); Mean Corp Hgb Conc 34.3 g/dL (32-36); Mean Corpuscular Volume 93.4 fL (81-99); Monocyte% 5.6 % (0-10); NRBC Flagged by Analyzer 0 % (0-5); Neutrophil # 3.38 X10^3/uL (2.7-7.7); Neutrophil % 63.4 % (47-70); Platelet Count 190 K/mm3 (150-450); RBC Distribution Width CV 11.7 % (11.6-14.6); RBC Distribution Width SD 40.2 fl (35.1-43.9); White Blood Count 5.3 K/mm3 (4.4-11.0)
[2023-09-05 17:03] LABS: Mucous, Urine 0 SEEN /hpf (<or=2+); Red Blood Cells-Urine 0 SEEN /hpf (0-5); White Blood Cells 0 SEEN /hpf (0-5)
[2023-09-05 17:04] LABS: Color, Urine Yellow (Yellow); Glucose, Dipstick Normal (Normal); Ketone-Dipstick Negative (Negative); Leukocyte Esterase-Dipstick Negative /ul (Negative); Nitrite-Dipstick Negative (Negative); Occult Blood-Urine Negative /ul (Negative); Protein-Dipstick Negative (Negative); Urine Bilirubin Dipstick Negative (Negative); Urine Clarity Clear (Clear); Urine Urobilinogen Normal (Normal)
[2023-09-05 17:12] LABS: ALB/GLOB Ratio 1.3 RATIO (0.9-2.4); AST(SGOT) 13 U/L (15-37); Alanine Aminotransfer ALT/SGPT 23 U/L (13-56); Albumin, Serum 3.8 g/dL (3.2-5.0); Alkaline Phosphatase 53 U/L (45-117); Anion Gap 5 (5-15); BUN 9 mg/dL (7-18); BUN/Creat Ratio 10.9 RATIO (10-20); Calcium,Total 8.8 mg/dL (8.5-10.1); Chloride 107 mmol/L (98-107); Creatinine, Serum 0.82 mg/dL (0.55-1.02); EST Glomerular Filtration Rate 83 mL/min (>60); Est Glom Filt Rate - Afr Amer 100 mL/min (>60); Estimated Creatinine Clearance 85.35 ml/min; Glucose 85 mg/dL (74-106); Lipase 58 U/L (13-75); Potassium 3.4 mmol/L (3.5-5.1); Protein, Total 6.8 g/dL (6.4-8.2); Sodium Level 140 mmol/L (136-145)
[2023-09-05 17:14] LABS: Amorphous Sediment 1+; Bacteria 1+ /hpf (None Seen); Squamous Epithelial Cells - UA 0-5 SEEN /hpf (5-10)
[2023-09-05 18:10] VITALS: BP 98/68; PULSE 54; RESP 16; O2SAT 100
== END 2023-09-05 18:15 | disposition home or self-care (01) ==
PROVIDERS: Emergency Provider Emergency Medicine; PCP Nurse Practitioner Family; Visit Provider Emergency Medicine
DX: G89.18 Other acute postprocedural pain (principal); R10.32 Left lower quadrant pain; R10.13 Epigastric pain; F41.9 Anxiety disorder, unspecified; Z79.899 Other long term (current) drug therapy; Z90.710 Acquired absence of both cervix and uterus
CPT/HCPCS: 36415; 74177; 80053; 81001; 83690; 85025; 96361; 96374; 96375; 99283; Q9967; A4216; J2405

== ENCOUNTER → 2023-09-06 | Outpatient (CLI) | payer MEDICAID, SELFPAY ==
--- NOTE | 2023-09-06 09:53 | NM_ITS ---
CLINICAL: 37-year-old female with history of abdominal pain. RADIONUCLIDE HEPATOBILIARY SCINTIGRAPHY COMPARISON: CT of the abdomen-pelvis report 09/05/2023 FINDINGS: Following the intravenous administration of 5.6 mCi of 99m Tc Mebrofenin, hepatobiliary images reveal: 1. Relatively prompt and homogeneous radiopharmaceutical concentration is noted by a normal sized liver. No parenchymal defects are identified. 2. Gallbladder activity is identified at 10 minutes post radiopharmaceutical administration. 3. Small intestinal tract is not visualized during 60 minutes of sequential imaging acquisition. Small bowel is observed at 90 minutes following tracer injection. 4. Washout of the radiopharmaceutical by the hepatic parenchyma appears qualitatively normal. NM/Hepatobilliary Imaging IMPRESSION: 1. ABNORMAL 99m Tc Mebrofenin hepatobiliary imaging examination. A. Visualization of the gallbladder within 60 minutes post radiopharmaceutical administration excludes acute cholecystitis with 97% certitude. (Blessing et al, Nucl Med Magi Press pg. 35, 1981). B. Delayed small bowel demonstration (> 60 minutes) may represent partial common bile duct obstruction in the appropriate clinical setting. (Agustin et al, Semin Nucl Med 12: 53, 1982). Electronically Signed: Claudio Mendoza DO at 22:41 EDT ,
== END | disposition home or self-care (01) ==
LOC: NM 09:49
PROVIDERS: PCP Nurse Practitioner Family; Referring Provider Internal Medicine Gastroenterology; Visit Provider Internal Medicine Gastroenterology
DX: R10.84 Generalized abdominal pain (principal); G89.18 Other acute postprocedural pain
CPT/HCPCS: 78226; A9537

== ENCOUNTER → 2023-10-05 | Outpatient (CLI) | payer MEDICAID, SELFPAY ==
--- NOTE | 2023-10-05 15:51 | MRI_ITS ---
MRCP without contrast 10/05/2023 4:13 PM COMPARISON: HIDA scan 09/06/2023 CLINICAL HISTORY: abnormal HIDA scan, abdomen pain TECHNIQUE: Multiplanar and multisequence MR images of the abdomen were obtained with MRCP sequence. Three-dimensional post-processing reconstructions were performed. FINDINGS: Liver: There is hepatic steatosis. Gallbladder: Unremarkable Bile Ducts: No intra or extrahepatic biliary ductal dilatation. Pancreas: Unremarkable Spleen: Unremarkable Adrenal Glands: Unremarkable Kidneys: Unremarkable GI Tract: Unremarkable Lymphadenopathy: Absent Ascites: Absent Bones: No suspicious lesions MRI/MRCP Abdomen without Contrast IMPRESSION: No intra or extrahepatic biliary ductal dilatation. No evidence of choledocholithiasis. Hepatic steatosis. Electronically Signed: Malcolm Mendiola MD at 20:04 EST ,
== END | disposition home or self-care (01) ==
LOC: MRI 15:48
PROVIDERS: PCP Nurse Practitioner Family; Visit Provider Internal Medicine Gastroenterology
DX: R10.9 Unspecified abdominal pain (principal); G89.18 Other acute postprocedural pain
CPT/HCPCS: 74181

== ENCOUNTER 2024-05-02 17:17 | Emergency (ER) | payer MEDICAID, SELFPAY ==
[2024-05-02 17:18] VITALS: BP 100/71; PULSE 92; RESP 18; TEMP 36.1; O2SAT 100; BMI 23.1
[2024-05-02 18:22] LABS: Absolute Lymphocyte Count 2.38 X10^3/uL (0.83-4.51); Absolute Neutrophil Count 3.5 X10^3/uL (2.0-7.7); Basophil# 0.06 X10^3/uL; Basophil% 0.9 % (0-1); Eosinophil# 0.18 X10^3/uL; Eosinophils% 2.7 % (0-5); Hemoglobin 13.7 g/dL (12.0-15.0); Lymphocyte # 2.38 X10^3/ul (0.83-4.51); Mean Corp Hgb Conc 33.4 g/dL (32-36); Mean Corpuscular Hgb 31.1 pg (27.0-32.0); Mean Platelet Vol. 11.9 fl (6.2-12.0); Monocyte# 0.46 X10^3/uL; NRBC Flagged by Analyzer 0 % (0-5); Neutrophil % 52.9 % (47-70); Platelet Count 242 K/mm3 (150-450); RBC Distribution Width CV 11.8 % (11.6-14.6); RBC Distribution Width SD 40.4 fl (35.1-43.9); Red Blood Count 4.41 M/mm3 (4.2-5.4); White Blood Count 6.6 K/mm3 (4.4-11.0)
[2024-05-02] MEDS: 0.9% Normal Saline (1000mL) 1,000 ML 999 ML IV (18:22)
[2024-05-02 18:32] LABS: Mucous, Urine 0 SEEN /hpf (<or=2+); Red Blood Cells-Urine 0 SEEN /hpf (0-5)
[2024-05-02 18:39] LABS: Internal QC Validated? YES +Cl - CLEAR BKGD; Pregnancy, Serum, hCG Quali. NEGATIVE Negative
[2024-05-02 18:42] LABS: Color, Urine Yellow (Yellow); Glucose, Dipstick Normal (Normal); Ketone-Dipstick Negative (Negative); Leukocyte Esterase-Dipstick Negative /ul (Negative); Nitrite-Dipstick Negative (Negative); Occult Blood-Urine Negative /ul (Negative); Protein-Dipstick Negative (Negative); Urine Bilirubin Dipstick Negative (Negative); Urine Clarity Clear (Clear); Urine Urobilinogen Normal (Normal)
[2024-05-02 18:45] LABS: ALB/GLOB Ratio 1.3 RATIO (0.9-2.4); AST(SGOT) 19 U/L (15-37); Alanine Aminotransfer ALT/SGPT 27 U/L (13-56); Albumin, Serum 3.9 g/dL (3.2-5.0); Alkaline Phosphatase 51 U/L (45-117); Anion Gap 6 (5-15); BUN 18 mg/dL (7-18); BUN/Creat Ratio 22.2 RATIO (10-20); Calcium,Total 9.2 mg/dL (8.5-10.1); Chloride 108 mmol/L (98-107); Creatinine, Serum 0.81 mg/dL (0.55-1.02); EST Glomerular Filtration Rate 84 mL/min (>60); Est Glom Filt Rate - Afr Amer 102 mL/min (>60); Estimated Creatinine Clearance 85.57 ml/min; Globulin 3.1 g/dL (2.2-4.2); Glucose 112 mg/dL (74-106); Lipase 77 U/L (13-75); Potassium 3.7 mmol/L (3.5-5.1); Sodium Level 140 mmol/L (136-145)
--- NOTE | 2024-05-02 18:49 | CT_ITS ---
INDICATION: llq abdominal pain EXAMINATION: CT ABDOMEN AND PELVIS WITH CONTRAST - CT Abdomen And Pelvis W/ Contrast Injection TECHNIQUE: Helically acquired images were obtained of the abdomen and pelvis following IV contrast. A radiation dose optimization technique was used for this scan. IV Contrast dosage and agent: 75 mL Isovue-370 Oral contrast: None. COMPARISON: September 05, 2023. FINDINGS: LOWER CHEST: Lung bases are clear. No cardiomegaly or pericardial effusion. LIVER: Homogeneous parenchyma with mild hepatomegaly. No focal mass. GALLBLADDER AND BILIARY TREE: No calcified gallstones. No gallbladder distension or wall edema. No intra- or extrahepatic biliary ductal dilation. PANCREAS: No focal cystic or solid mass. SPLEEN: Normal size without focal cystic or solid mass. ADRENAL GLANDS: No nodules. KIDNEYS AND URETERS: Normal renal size and position. No hydronephrosis. PERITONEUM: No ascites or free air. No other fluid collection. BOWEL: No acute gastric finding.. No small bowel distention or focal wall thickening. Normal appendix. Large colonic stool burden without wall thickening or surrounding inflammation. LYMPH NODES: No enlarged mesenteric or retroperitoneal lymph nodes. VESSELS: Aorta is non-dilated. URINARY BLADDER: Unremarkable. REPRODUCTIVE ORGANS: Absent uterus. No evidence of adnexal mass.. ABDOMINAL WALL: No discrete abdominal or pelvic wall hernia. BONES: No lytic or blastic abnormality. CT/Abdomen/Pelvis W IV Cont ONLY IMPRESSION: Large colonic stool burden as can be seen with constipation. No other acute finding. Electronically Signed: Edmund Gilliam MD at 19:35 EDT ,
[2024-05-02] MEDS: Morphine 4 MG/ML Syringe IV (18:59)
[2024-05-02] MEDS: Ondansetron 4 MG/2 ML Vial IV (18:59)
[2024-05-02 19:08] LABS: Bacteria 1+ /hpf (None Seen); Squamous Epithelial Cells - UA 0-5 SEEN /hpf (5-10); White Blood Cells 0-5 SEEN /hpf (0-5)
[2024-05-02 20:00] VITALS: BP 96/60; PULSE 80; RESP 17; TEMP 36.9; O2SAT 98
[2024-05-02 22:00] VITALS: RESP 17
[2024-05-02 22:05] VITALS: BP 91/58; PULSE 69; RESP 17; TEMP 36.7; O2SAT 97
[2024-05-02] MEDS: Magnesium Citrate 300 ML PO (22:09)
--- NOTE | 2024-05-02 23:25 | EDS_ITS ---
HPI HPI - GI History of Present Illness Chief Complaint: Abd Pain Narrative Narrative: 38-year-old female presenting with diffuse abdominal pain. It started on the right side of her abdomen yesterday and now it is radiating to the left side of her abdomen. She reports she does have bowel movements. She has not had diarrhea. She does get nauseous at times. Patient states she think she is having an endometriosis flare. She states she has this managed by an [employer] with [facility]. She states she is just getting back to normal and getting back to work and now she is having the pain again. She has not a fever. Denies urinary complaints. Denies vaginal complaints. PFSH [facility] Medical History Wears glasses Wears contact lenses Wears partial dentures Traumatic brain injury Injury of head and neck History of IBS Smoker History of echocardiogram Cardiology follow-up encounter Atrial tachycardia Raynauds disease Diarrhea RUQ discomfort Chronic Tom Narayan virus (EBV) infection Psychosomatic seizure IBS (irritable bowel syndrome) PTSD (post-traumatic stress disorder) Colitis Depression Anxiety Normal colonoscopy Endometriosis H/O ETOH abuse Drug addiction in remission Home Medications ?Medication ?Instructions ?Recorded ?Last Taken ?Type vitamin Bcomplex no.10-folic acid 1 tab PO DAILY 02/18/21 05/02/24 History ER 400 mcg tablet,extended release cholecalciferol (vitamin D3) 25 3,000 unit PO DAILY 07/21/21 05/02/24 History mcg (1,000 unit) capsule lorazepam 0.5 mg tablet (Ativan) 0.5 mg PO DAILY PRN anxiety 04/07/22 Unknown History Allergy/AdvReac Type Severity Reaction Status Date / Time aspirin Allergy Severe anaphylaxis Verified 05/02/24 17:20 ketorolac (From Toradol) Allergy Severe Anaphylaxis Verified 05/02/24 17:20 Latex, Natural Rubber Allergy Severe Anaphylaxis Verified 05/02/24 17:20 Penicillins Allergy Severe anaphylacti Verified 05/02/24 17:20 c vancomycin Allergy Severe Anaphylaxis Verified 05/02/24 17:20 Family History Mother Asthma CHF (congestive heart failure) Other Basal cell adenoma CAD (coronary artery disease) COPD (chronic obstructive pulmonary disease) CVA (cerebral vascular accident) Diabetes Endometriosis Heart disease Hypertension Myocardial infarction Seizures Thyroid disorder Surgical History History of hand surgery H/O hysterectomy with unilateral oophorectomy Hx of tonsillectomy History of myringotomy H/O laparoscopy Social History Smoking Status: Current every day smoker tobacco type: cigarettes alcohol intake: never substance use type: former substance user caffeine: Yes what type of physical activity do you participate in: yoga frequency: 1-2 times per week ROS ROS ED Constitutional Constitutional ED: Denies chills, fever(s) or sweats Eyes Eyes: Denies blurry vision or change in vision ENT ENT ED: Denies ear pain or sore throat Cardiovascular Cardiovascular: Denies chest pain, palpitations or racing heartbeat Respiratory/Chest Respiratory/Chest: Denies cough, dyspnea or sputum Gastrointestinal Gastrointestinal: Reports abdominal pain and nausea; Denies constipation, diarrhea or vomiting Genitourinary Genitourinary ED: Denies dysuria, hematuria or urinary frequency Musculoskeletal Musculoskeletal: Denies arthralgias, myalgias or neck pain Integumentary Denies abscess, Abrasions or rash Neurologic Neurologic: Denies headache(s), paresthesias or weakness Psychiatric Psychiatric: Denies anxiety, depression, suicidal ideation or suicidal thoughts Endocrine Endocrinology: Denies polydipsia or polyuria EXAM Physical Exam Const Vital Signs: 05/02/24 17:18 05/02/24 20:00 05/02/24 22:00 Temperature 96.9 F L 98.5 F Temperature Source Temporal Oral Pulse Rate 92 80 Respiratory Rate 18 17 17 Blood Pressure 100/71 96/60 Blood Pressure Mean 80 72 Pulse Ox 100 98 Oxygen Delivery Method Room Air Room Air Room Air 05/02/24 22:05 Temperature 98.1 F Temperature Source Pulse Rate 69 Respiratory Rate 17 Blood Pressure 91/58 L Blood Pressure Mean 69 Pulse Ox 97 Oxygen Delivery Method Positive well nourished General Appearance ED: NAD; Negative for pallor HEENT Reports moist mucous membranes normocephalic and atraumatic Eyes PERRL and EOMs intact bilaterally Resp normal respiratory effort Auscultation: Negative for rales or rhonchi Cardio regular rate and regular rhythm GI GI Narrative: Tenderness palpation left lower quadrant. Abdomen is soft. No peritoneal signs. Neuro CN's II-XII intact bilaterally Sensorium / Orientation: alert Psych mental status grossly normal Skin General Skin Exam: Negative for jaundice or pallor MDM MDM MDM Narrative Medical decision making narrative: 38-year-old female with abdominal pain. Differential includes colitis, diverticulitis, gastritis, pancreatitis, constipation, UTI, pyelonephritis, renal calculi, ureteral calculi, bowel obstruction, malignancy, dehydration, electrolyte abnormalities, , ectopic , ovarian cyst, ovarian torsion. CBC will be obtained to assess white blood cell count, hemoglobin, platelets. CMP to assess renal function, electrolytes, liver function, glucose. Lipase to assess for pancreatitis. Urinalysis to assess for UTI. CBC shows normal white blood cell count, hemoglobin, platelets. CMP shows normal renal function, liver function, electrolytes, glucose. Lipase negative. Urinalysis negative for infection. hCG negative. Patient medicated with morphine, Zofran. Her pain is improved. We did obtain a CT of the abdomen pelvis which shows a large colonic stool burden. Discussed this with the patient and she is amenable to taking some magnesium citrate. I recommended that she increase high-fiber foods, lots of fluids and she may need to get start MiraLAX on a more regular basis. She is amenable to this plan. Discharged stable condition. Impression: 1. Abdominal pain 2. Constipation Lab Data Attestation: I reviewed the patient's lab results. Labs: Laboratory Results - last 24 hr 05/02/24 05/02/24 17:00 17:40 WBC 6.6 RBC 4.41 Hgb 13.7 Hct 41.0 MCV 93.0 MCH 31.1 MCHC 33.4 RDW Std Deviation 40.4 RDW Coeff of Ivon 11.8 Plt Count 242 MPV 11.9 Immature Gran % (Auto) 0.500 Neut % (Auto) 52.9 Lymph % (Auto) 36.0 [place] % (Auto) 7.0 Eos % (Auto) 2.7 Baso % (Auto) 0.9 Absolute Neuts (auto) 3.5 Absolute Lymphs (auto) 2.38 Nucleated RBC % 0 Sodium 140 Potassium 3.7 Chloride 108 H Carbon Dioxide 26.0 Anion Gap 6 BUN 18 Creatinine 0.81 Estim Creat Clear Calc 85.57 Est GFR (MDRD) Af Amer 102 Est GFR (MDRD) Non-Af 84 BUN/Creatinine Ratio 22.2 H Glucose 112 H Calcium 9.2 Total Bilirubin 0.30 AST 19 ALT 27 Alkaline Phosphatase 51 Total Protein 7.0 Albumin 3.9 Globulin 3.1 Albumin/Globulin Ratio 1.3 Lipase 77 H Serum , Qual NEGATIVE Urine Color Yellow Urine Clarity Clear Urine pH 7.0 [address] [employer] [place] 1.010 Urine Protein Negative Urine Glucose (UA) Normal Urine Ketones Negative Urine Occult Blood Negative Urine Nitrite Negative Urine Bilirubin Negative Urine Urobilinogen Normal Ur Leukocyte Esterase Negative Urine RBC 0 SEEN Urine WBC 0-5 SEEN Ur Squamous Epith Cells 0-5 SEEN Urine Bacteria 1+ Urine Mucus 0 SEEN Radiography Diagnostic Testing: Clinical Impression(s) from Imaging Studies Abdomen/Pelvis CT 05/02/24 18:49 IMPRESSION: Large colonic stool burden as can be seen with constipation. No other acute finding. Electronically Signed: Edmund Gilliam MD at 19:35 EDT Reading Location ID and State: [facility] / [place] Tel , Service support , Discharge Plan Triage Chief Complaint: Abd Pain ED Provider: Deniz Tijerina Dx/Rx/DC Orders Instructions: ED Abdominal Pain Unkn Cause Fem, ED Constipation (Adult) Prescriptions: No Action vitamin B complex no.10-FA 400 mcg tablet extended release 1 tab PO DAILY cholecalciferol (vitamin D3) 25 mcg (1,000 unit) capsule 3,000 unit PO DAILY lorazepam [Ativan] 0.5 mg tablet 0.5 mg PO DAILY PRN (Reason: anxiety) Primary Care Provider: Marylou Arauz Referrals: Marylou Arauz, [employer] GRINDER-C [Primary Care Provider] - Print Language: Mozambican Disposition Disposition: Home, Self Care Discharge Date/Time: 05/02/24 22:11
== END 2024-05-02 22:11 | disposition home or self-care (01) ==
PROVIDERS: Emergency Provider Student in an Organized Health Care Education/Training Program; PCP Nurse Practitioner Family; Visit Provider Student in an Organized Health Care Education/Training Program
DX: K59.00 Constipation, unspecified (principal); R10.9 Unspecified abdominal pain; F41.9 Anxiety disorder, unspecified; Z90.710 Acquired absence of both cervix and uterus; Z96.22 Myringotomy tube(s) status; F17.210 Nicotine dependence, cigarettes, uncomplicated
CPT/HCPCS: 74177; 80053; 81001; 83690; 84703; 85025; 96361; 96374; 96375; 99284; J7030; Q9967; A4216; J2405

== ENCOUNTER → 2024-05-04 | Outpatient (CLI) | payer MEDICAID, SELFPAY ==
[2024-05-04 18:50] LABS: Erythrocyte Sedimentation Rate 1 mm/hr (0-30)
[2024-05-04 19:15] LABS: CRP < 2.90 mg/L (0.0-3.0); Ferritin 31 ng/mL (8-252); Prolactin 7.5 ng/mL
[2024-05-12 09:08] LABS: Albumin 3.9 g/dL (2.9-4.4); Aldosterone, Serum 2.8 ng/dL (0.0-30.0); Alpha-1-Globulins 0.2 g/dL (0.0-0.4); Alpha-2-Globulins 0.5 g/dL (0.4-1.0); Chromogranin A 57.5 ng/mL (0.0-101.8); Dopamine, Pl <30 pg/mL (0-48); Epinephrine, Pl 24 pg/mL (0-62); Gamma Globulin 0.8 g/dL (0.4-1.8); Gastrin, Serum 24 pg/mL (0-115); Immunoglobulin A 136 mg/dL (87-352); Immunoglobulin G 785 mg/dL (586-1602); Immunoglobulin M 156 mg/dL (26-217); Norepinephrine, Pl 189 pg/mL (0-874)
== END | disposition home or self-care (01) ==
LOC: LAB 16:54
PROVIDERS: PCP Nurse Practitioner Family; Referring Provider Internal Medicine Gastroenterology; Visit Provider Internal Medicine Gastroenterology
DX: K62.5 Hemorrhage of anus and rectum (principal); K52.9 Noninfective gastroenteritis and colitis, unspecified
CPT/HCPCS: 36415; 82088; 82384; 82533; 82728; 82784; 82941; 84146; 84165; 85652; 86140; 86316; 86334

== ENCOUNTER → 2024-05-07 | Outpatient (CLI) | payer MEDICAID, SELFPAY | END | disposition home or self-care (01) | LOC: LABSPEC 18:01 | PROVIDERS: PCP Nurse Practitioner Family; Referring Provider Internal Medicine Gastroenterology; Visit Provider Internal Medicine Gastroenterology | DX: Z00.00 Encounter for general adult medical examination without abnormal findings (principal) ==

== ENCOUNTER → 2024-05-07 | Outpatient (CLI) | payer MEDICAID, SELFPAY | END | disposition home or self-care (01) | LOC: LABSPEC 18:05 | PROVIDERS: PCP Nurse Practitioner Family; Referring Provider Internal Medicine Gastroenterology; Visit Provider Internal Medicine Gastroenterology | DX: K62.5 Hemorrhage of anus and rectum (principal); K52.9 Noninfective gastroenteritis and colitis, unspecified | CPT/HCPCS: 81050; 82384; 84585 ==

== ENCOUNTER → 2024-05-31 | Outpatient (CLI) | payer MEDICAID, SELFPAY | END | disposition home or self-care (01) | LOC: LABSPEC 08:15 | PROVIDERS: PCP Nurse Practitioner Family; Referring Provider Internal Medicine Gastroenterology; Visit Provider Internal Medicine Gastroenterology | DX: K62.5 Hemorrhage of anus and rectum (principal) | CPT/HCPCS: 87177; 87209; 87329 ==

== ENCOUNTER → 2024-06-22 | Outpatient (CLI) | payer MEDICAID, SELFPAY ==
[2024-06-26 03:06] LABS: Pancreatic Elastase, Fecal > 800 (>200)
== END | disposition home or self-care (01) ==
PROVIDERS: PCP Nurse Practitioner Family; Referring Provider Student in an Organized Health Care Education/Training Program; Visit Provider Student in an Organized Health Care Education/Training Program
DX: R14.0 Abdominal distension (gaseous) (principal)
CPT/HCPCS: 82653

== ENCOUNTER → 2024-09-14 | Outpatient (CLI) | payer MEDICAID, SELFPAY ==
[2024-09-14 11:24] LABS: Erythrocyte Sedimentation Rate < 1 mm/hr (0-30)
[2024-09-14 11:57] LABS: CRP < 2.90 mg/L (0.0-3.0); LDH 157 U/L (84-246)
== END | disposition home or self-care (01) ==
LOC: LAB 10:18
PROVIDERS: PCP Nurse Practitioner Family
DX: K58.0 Irritable bowel syndrome with diarrhea (principal)
CPT/HCPCS: 36415; 82784; 83516; 83615; 85652; 86140; 86255

== ENCOUNTER 2025-03-02 10:43 | Emergency (ER) | payer MEDICAID, SELFPAY ==
[2025-03-02 10:43] VITALS: BP 111/85; PULSE 70; RESP 14; TEMP 37.2; O2SAT 100; BMI 22.4
[2025-03-02 11:29] VITALS: BP 104/72; PULSE 54; RESP 20; O2SAT 99
--- NOTE | 2025-03-02 11:40 | ED.VIS.GI ---
HPI HPI - GI History of Present Illness Chief Complaint: GI Bleed Informant: patient Narrative Narrative: 39-year-old female presenting to the emergency room with rectal bleeding. Patient states that earlier this morning she went to the bathroom with left-sided lower abdominal pain. She states she had 2 episodes of diarrhea and was diaphoretic. She states that she has had bright red blood since but no further diarrhea. She notes rectal pain. No reported fevers. She states she had a colonoscopy around 2022. She has seen [facility] in the past has been diagnosed with IBS. [facility] Medical History Wears glasses Wears contact lenses Wears partial dentures Traumatic brain injury Injury of head and neck History of IBS Smoker History of echocardiogram Cardiology follow-up encounter Atrial tachycardia Raynauds disease Diarrhea RUQ discomfort Chronic Tom Narayan virus (EBV) infection Psychosomatic seizure IBS (irritable bowel syndrome) PTSD (post-traumatic stress disorder) Colitis Depression Anxiety Normal colonoscopy Endometriosis H/O ETOH abuse Drug addiction in remission Home Medications ?Medication ?Instructions ?Recorded ?Last Taken ?Type vitamin Bcomplex no.10-folic acid 1 tab PO DAILY 02/18/21 05/02/24 History ER 400 mcg tablet,extended release cholecalciferol (vitamin D3) 25 3,000 unit PO DAILY 07/21/21 05/02/24 History mcg (1,000 unit) capsule lorazepam 0.5 mg tablet (Ativan) 0.5 mg PO DAILY PRN anxiety 04/07/22 Unknown History ondansetron 4 mg disintegrating 4 mg PO Q8H PRN nausea and 06/15/24 Unknown Rx tablet vomiting #14 tabs rifaximin 550 mg tablet (Xifaxan) 550 mg PO TID #42 tabs 06/23/24 Unknown Rx Diltiazem 2% / Lidocaine 5% #1 ea 11/28/24 Unknown Rx ointment (compound) (Diltiazem 2%/Lidocaine 5% ointment (compound)) Allergy/AdvReac Type Severity Reaction Status Date / Time aspirin Allergy Severe anaphylaxis Verified 03/02/25 10:43 ketorolac (From Toradol) Allergy Severe Anaphylaxis Verified 03/02/25 10:43 Latex, Natural Rubber Allergy Severe Anaphylaxis Verified 03/02/25 10:43 Penicillins Allergy Severe anaphylacti Verified 03/02/25 10:43 c vancomycin Allergy Severe Anaphylaxis Verified 03/02/25 10:43 Family History Mother Asthma CHF (congestive heart failure) Other Basal cell adenoma CAD (coronary artery disease) COPD (chronic obstructive pulmonary disease) CVA (cerebral vascular accident) Diabetes Endometriosis Heart disease Hypertension Myocardial infarction Seizures Thyroid disorder Surgical History History of hand surgery H/O hysterectomy with unilateral oophorectomy Hx of tonsillectomy History of myringotomy H/O laparoscopy Social History Smoking Status: Current every day smoker tobacco type: cigarettes alcohol intake: never substance use type: former substance user caffeine: Yes what type of physical activity do you participate in: yoga frequency: 1-2 times per week ROS ROS ED Constitutional Constitutional ED: Denies chills or weight loss Eyes Eyes: Denies change in vision or diplopia ENT ENT ED: Denies ear pain, rhinorrhea or sore throat Cardiovascular Cardiovascular: Denies chest pain, orthopnea, palpitations or racing heartbeat Respiratory/Chest Respiratory/Chest: Denies cough, dyspnea or orthopnea Gastrointestinal Gastrointestinal: Reports abdominal pain, diarrhea, nausea and other Details: Bright red blood per rectum. Rectal pain. ; Denies vomiting Genitourinary Genitourinary ED: Denies dysuria, hematuria or urinary frequency Musculoskeletal Musculoskeletal: Denies arthralgias or myalgias Integumentary Denies abscess or rash Neurologic Neurologic: Denies headache(s) or weakness Psychiatric Psychiatric: Denies anxiety, depression, suicidal ideation or suicidal thoughts Endocrine Endocrinology: Denies polydipsia, polyphagia or polyuria Allergic/Immunologic Allergic/Immunologic ED: Denies mouth swelling, tongue swelling or urticaria EXAM Physical Exam Const Vital Signs: 03/02/25 10:43 03/02/25 11:29 Temperature 98.9 F Temperature Source Temporal Pulse Rate 70 54 L Respiratory Rate 14 20 H Blood Pressure 111/85 H 104/72 Blood Pressure Mean 93 82 Pulse Ox 100 99 Oxygen Delivery Method Room Air Room Air Positive well nourished and well developed General Appearance ED: well developed and NAD HEENT Reports normocephalic, head/scalp atraumatic and moist mucous membranes Eyes PERRL and EOMs intact bilaterally Neck no lymphadenopathy, supple and no JVD Resp normal respiratory effort and clear to auscultation bilaterally Cardio regular rate, regular rhythm and no murmurs GI Inspection: Negative for abdominal distention Auscultation: normoactive bowel sounds Palpation: soft and tender LLQ and suprapubic; Negative for guarding, rigid or rebound tenderness present Narrative: Rectal examination performed in presence of female nurse Giovana Bell I do not appreciate any anal fissure. I do not appreciate any hemorrhoidal disease. No gross blood. Back/Spine no CVA tenderness and normal ROM Extremity normal to inspection General Extremety ED: Negative for edema General Extremity: Negative for edema Neuro oriented x3 and CN's II-XII intact bilaterally Sensorium / Orientation: alert Motor Exam: strength 5/5 throughout Psych mental status grossly normal Mood & Affect: Negative for depressed or tearful Skin no rashes or lesions noted and no wounds MDM MDM MDM Narrative Medical decision making narrative: Differential diagnosis includes but not limited to colitis diverticulitis diverticular disease AVM anal fissure internal hemorrhoids infectious diarrhea Patient's white count is nonspecifically elevated at 12.7. Hemoglobin is 14.3 platelet count of 211. BMP shows a anion gap of 11 creatinine 0.7 normal electrolytes glucose of 95. Urinalysis is contaminated 10-25 white blood cells but no overt infection. test is negative. While waiting the patient's blood work nursing informed me that the patient wanted to sign out and go to another hospital. Patient states that she is not being kept informed of what is happening. She does not understand why she is not getting IV fluids. I informed her that she is normotensive she is not tachycardic and I do not see obvious signs of dehydration. Therefore I did not feel that IV fluids were necessary. She asked me what the next steps were and I said the next step would be to obtain the results of the blood work and to do a CT at that point but that I cannot order the CT and have it performed without knowing what the creatinine and status was. She states that nobody has asked her her allergies or her medications. She states that there are needles on her bed and shit on the toilet. She states that we do not understand what informed consent means. I asked the patient what she wished me to do and she said we can start with fluids and medicine. I told her I would be happy to get of her a dose of Bentyl and some Zofran. She tells me that Bentyl is for spasms and that is not what is going on here. I told her it is very common to experience colonic spasms in the setting of GI bleeding. Patient states that she just wants her paperwork and is going to leave. It would appear that the patient has capacity to make this decision. History & Record Review Discussion w/independent historian: Patient and Family Lab Data Attestation: I reviewed the patient's lab results. Labs: Laboratory Results - last 24 hr 03/02/25 03/02/25 11:45 12:00 WBC 12.7 H RBC 4.57 Hgb 14.3 Hct 41.8 MCV 91.5 MCH 31.3 MCHC 34.2 RDW Std Deviation 39.4 RDW Coeff of Ivon 11.8 Plt Count 211 MPV 12.0 Immature Gran % (Auto) 0.300 Neut % (Auto) 86.4 H Lymph % (Auto) 7.8 L [place] % (Auto) 5.0 Eos % (Auto) 0.2 Baso % (Auto) 0.3 Absolute Neuts (auto) 11.0 H Absolute Lymphs (auto) 0.99 Nucleated RBC % 0 Sodium 137 Potassium 3.9 Chloride 106 Carbon Dioxide 20.0 L Anion Gap 11 BUN 15 Creatinine 0.70 Estim Creat Clear Calc 98.05 Est GFR (MDRD) Non-Af 113 BUN/Creatinine Ratio 21.7 H Glucose 95 Calcium 9.2 Serum , Qual NEGATIVE Urine Color Yellow Urine Clarity Sl. Cloudy Urine pH 6.0 Ur Specific [place] 1.020 Urine Protein 30 H Urine Glucose (UA) Normal Urine Ketones 5 H Urine Occult Blood 10 H Urine Nitrite Negative Urine Bilirubin Negative Urine Urobilinogen Normal Ur Leukocyte Esterase 25 H Urine RBC 0 SEEN Urine WBC 0 SEEN Ur Squamous Epith Cells 10-25 SEEN Urine Bacteria 1+ Urine Mucus 2+ Discharge Plan Triage Chief Complaint: GI Bleed ED Provider: Meet Guallpa Dx/Rx/DC Orders Prescriptions: No Action vitamin B complex no.10-FA 400 mcg tablet extended release 1 tab PO DAILY cholecalciferol (vitamin D3) 25 mcg (1,000 unit) capsule 3,000 unit PO DAILY lorazepam [Ativan] 0.5 mg tablet 0.5 mg PO DAILY PRN (Reason: anxiety) ondansetron 4 mg tablet,disintegrating 4 mg PO Q8H PRN (Reason: nausea and vomiting) Qty: 14 1RF Xifaxan 550 mg tablet 550 mg PO TID Qty: 42 0RF (DME) Diltiazem 2%/Lidocaine 5% ointment (compound) Ointment See Rx Instructions .Route Qty: 1 0RF Rx Instructions: Apply to anus twice daily as needed for hemmrhoids Primary Care Provider: Marylou Arauz Referrals: Marylou Arauz, [employer]TE DRIVER SALESPERSON-C [Primary Care Provider] - Print Language: Malian
[2025-03-02 11:51] LABS: Red Blood Cells-Urine 0 SEEN /hpf (0-5); White Blood Cells 0 SEEN /hpf (0-5)
[2025-03-02 11:52] LABS: Color, Urine Yellow (Yellow); Glucose, Dipstick Normal (Normal); Ketone-Dipstick 5 mg/dl (Negative); Leukocyte Esterase-Dipstick 25 /ul (Negative); Nitrite-Dipstick Negative (Negative); Occult Blood-Urine 10 /ul (Negative); Protein-Dipstick 30 mg/dl (Negative); Urine Bilirubin Dipstick Negative (Negative); Urine Clarity Sl. Cloudy (Clear); Urine Urobilinogen Normal (Normal)
[2025-03-02 12:16] LABS: Absolute Lymphocyte Count 0.99 X10^3/uL (0.83-4.51); Basophil# 0.04 X10^3/uL; Basophil% 0.3 % (0-1); Eosinophil# 0.02 X10^3/uL; Eosinophils% 0.2 % (0-5); Hematocrit 41.8 % (37-47); Hemoglobin 14.3 g/dL (12.0-15.0); Lymphocyte # 0.99 X10^3/ul (0.83-4.51); Lymphocyte % 7.8 % (19-41); Mean Corp Hgb Conc 34.2 g/dL (32-36); Mean Corpuscular Hgb 31.3 pg (27.0-32.0); Mean Corpuscular Volume 91.5 fL (81-99); Monocyte# 0.63 X10^3/uL; NRBC Flagged by Analyzer 0 % (0-5); Neutrophil # 10.96 X10^3/uL (2.7-7.7); Neutrophil % 86.4 % (47-70); Platelet Count 211 K/mm3 (150-450); RBC Distribution Width CV 11.8 % (11.6-14.6); RBC Distribution Width SD 39.4 fl (35.1-43.9); Red Blood Count 4.57 M/mm3 (4.2-5.4); White Blood Count 12.7 K/mm3 (4.4-11.0)
[2025-03-02 12:18] LABS: Squamous Epithelial Cells - UA 10-25 SEEN /hpf (5-10)
[2025-03-02 12:19] LABS: Bacteria 1+ /hpf (None Seen); Mucous, Urine 2+ /hpf (<or=2+)
[2025-03-02 12:30] LABS: Anion Gap 11 (5-15); BUN 15 mg/dL (4-19); BUN/Creat Ratio 21.7 RATIO (10-20); Calcium,Total 9.2 mg/dL (7.6-11.0); Chloride 106 mmol/L (98-108); EST Glomerular Filtration Rate 113 (>60); Estimated Creatinine Clearance 98.05 ml/min (50-250); Glucose 95 mg/dL (70-99); Potassium 3.9 mmol/L (3.3-5.1); Sodium Level 137 mmol/L (133-145)
[2025-03-02 12:36] LABS: Internal QC Validated? YES +Cl - CLEAR BKGD; Pregnancy, Serum, hCG Quali. NEGATIVE Negative
[2025-03-02 12:45] VITALS: BP 100/68; BP 106/70; PULSE 62; RESP 18; TEMP 37.2; O2SAT 99
== END 2025-03-02 12:50 | disposition left against medical advice (07) ==
PROVIDERS: Emergency Provider Emergency Medicine; PCP Nurse Practitioner Family; Visit Provider Emergency Medicine
DX: K62.5 Hemorrhage of anus and rectum (principal); R10.32 Left lower quadrant pain; Z90.710 Acquired absence of both cervix and uterus; F41.9 Anxiety disorder, unspecified; Z79.899 Other long term (current) drug therapy; Z90.721 Acquired absence of ovaries, unilateral; F17.210 Nicotine dependence, cigarettes, uncomplicated
CPT/HCPCS: 36415; 80048; 81001; 84703; 85025; 99282; A4216

== ENCOUNTER → 2025-11-13 | Outpatient (CLI) | payer MEDICAID, SELFPAY ==
[2025-11-13 16:38] LABS: CPK Total, Creatine Kinase 124 U/L (24-195); CRP < 3.00 mg/L (0.0-3.0); Magnesium 2.1 mg/dL (1.5-2.2); Procalcitonin < 0.02 ng/mL (<=0.10)
== END | disposition home or self-care (01) ==
LOC: LAB 14:19
PROVIDERS: PCP Nurse Practitioner Family; Referring Provider Internal Medicine Gastroenterology; Visit Provider Internal Medicine Gastroenterology
DX: R10.30 Lower abdominal pain, unspecified (principal); K52.9 Noninfective gastroenteritis and colitis, unspecified
CPT/HCPCS: 82384; 84585; 36415; 82085; 82088; 82550; 82784; 82785; 82787; 83735; 84100; 84145; 84244; 85652; 86140; 86160; 86162

== ENCOUNTER → 2025-11-15 | Outpatient (CLI) | payer MEDICAID, SELFPAY | END | disposition home or self-care (01) | LOC: LAB 10:18 | PROVIDERS: PCP Nurse Practitioner Family; Referring Provider Internal Medicine Gastroenterology; Visit Provider Internal Medicine Gastroenterology | DX: Z00.00 Encounter for general adult medical examination without abnormal findings (principal) ==

== ENCOUNTER → 2025-11-27 | Outpatient (CLI) | payer MEDICAID, SELFPAY ==
--- NOTE | 2025-11-27 12:42 | MRI_ITS ---
EXAM: ENTEROGRAPHY ABD/PEL 11/27/2025 CLINICAL HISTORY: R10.30 - LOWER ABDOMINAL PAIN, UNSPECIFIED. TECHNIQUE: Procedure Code: MRIMRIENTER Modality: MR Procedure: ENTEROGRAPHY ABD/PEL Multiplanar and multisequence images were obtained without intravenous gadolinium contrast. CONTRAST: Clariscan VOLUME: 11 mL COMPARISON: 02-May-2024 CT FINDINGS: The stomach is adequately distended showing no obvious pathological wall thickening or masses. The duodenum: shows normal caliber and wall thickness. The Jejunum and ileal loops show standard caliber with mild uniform wall thickening and enhancement yet with no obvious wall edema or related collections. The large bowel: The cecum and ascending colon, the descending and sigmoid colon appears adequately distended shows uniform wall thickness with no significant wall edema. Average liver showing homogenous parenchymal signal. No obvious pathologically enhancing hepatic focal lesions. No dilated biliary tracts. The portal vein and hepatic veins apple normal. The gallbladder is unremarkable. The pancreas, adrenals and the spleen are normal in size and signal intensity. No obvious focal lesion is identified. Both kidneys are normal in size and position. No hydronephrosis or focal enhancing masses could be seen in both kidneys. Left renal small cortical cyst displaying fluid signal with another posterior wall 7 mm cyst displaying high T1 and low T2 signal, possibly hemorrhagic/proteinaceous contents. Unremarkable urinary bladder. No obvious pelvic masses. No ascites or collections. No significant lymph node enlargement is seen in the abdomen. No marrow infiltrative lesions. MRI/Enterography Abd/Pel IMPRESSION: No obvious small bowel or colonic inflammatory changes or obvious masses. Reading Location: [id number]
[2025-11-27 13:18] VITALS: BP 112/60; PULSE 65; RESP 16; O2SAT 97
[2025-11-27] MEDS: Glucagon 1 MG/ML Syringe IV (13:48)
[2025-11-27 14:05] VITALS: BP 102/73; PULSE 64; RESP 16; O2SAT 95
== END | disposition home or self-care (01) ==
LOC: MRI 12:14
PROVIDERS: PCP Nurse Practitioner Family; Referring Provider Internal Medicine Gastroenterology; Visit Provider Internal Medicine Gastroenterology
DX: R10.30 Lower abdominal pain, unspecified (principal); K52.9 Noninfective gastroenteritis and colitis, unspecified
CPT/HCPCS: 74183; 96374; A9575; A4216; J1610